=== PATIENT | female | born 1985 | race African-American/Black ===

== ENCOUNTER 2016-09-17 13:01 | Emergency (ER) | payer MEDICAID ==
[2016-09-17] MEDS ORDERED: PSEUDOEPHEDRINE HCL 30 MG TABLET PO ONE (14:06)
[2016-09-17] MEDS ORDERED: LORATADINE 10 MG TABLET PO ONE (14:06)
[2016-09-17] MEDS ORDERED: GUAIFENESIN 600 MG TABLET.SA PO ONE (14:06)
--- NOTE | 2016-09-17 14:12 | ER Document Report ---
ED Respiratory Problem - General Chief Complaint: Cough Stated Complaint: CONGESTION,SHORTNESS OF BREATH Time seen by provider: 14:00 Mode of Arrival: Ambulatory Information source: Patient Notes: 31-year-old female presents to ED for cough congestion shortness of breath with postnasal drip 3 days. She states she has a history of pneumonia ovarian cyst with the left ovary being removed tonsils and adenoids removed wisdom teeth surgically removed and a D&C. She states she is also allergic to penicillin. She smokes about 10 cigarettes a day and drinks on the weekends. She states she works at a [employer] and lives with her children. TRAVEL OUTSIDE OF THE [place] IN LAST 30 DAYS: No - HPI Patient complains to provider of: Cough, Short of breath Onset: Other - 3 days Duration: Intermittent episodes Initiating Event: URI Quality of pain: No pain Severity: None Pain Level: Denies Context: Smoker Cough: Nonproductive Sputum amount: None Associated symptoms: Congestion, Cough, PND, Sinus pain/pressure, Short of breath. denies: Fever Similar symptoms previously: Yes Recently seen / treated by doctor: No - Related Data Allergies/Adverse Reactions: Penicillins Allergy (Verified 09/17/16 13:22) Past Medical History - General Information source: Patient - Social History Smoking Status: Current Every Day Smoker Cigarette use (# per day): Yes - 10 cigarettes a day Chew tobacco use (# tins/day): No Smoking Education Provided: Yes - less than 1 minute Frequency of alcohol use: Social Drug Abuse: None Occupation: call center Lives with: Family - Her children Family History: DM, Hypertension, Other - CHF. denies: Arthritis, CAD, COPD, CVA, Hyperlipidemia, Malignancy, Thyroid Disfunction Patient has suicidal ideation: No Patient has homicidal ideation: No - Past Medical History Cardiac Medical History: Reports: None Pulmonary Medical History: Reports: Hx Pneumonia EENT Medical History: Reports: None Neurological Medical History: Reports: None Endocrine Medical History: Reports: None Renal/ Medical History: Reports: Hx Ovarian Cysts Malignancy Medical History: Reports: None GI Medical History: Reports: None Musculoskeltal Medical History: Reports None Skin Medical History: Reports None Psychiatric Medical History: Reports: None Traumatic Medical History: Reports: None Infectious Medical History: Reports: None Past Surgical History: Reports: Hx Adenoidectomy, Hx Gynecologic Surgery - left ovary removed due to cyst, Hx Oral Surgery - [place] teeth, Hx Tonsillectomy - Immunizations Hx Diphtheria, Pertussis, Tetanus Vaccination: Yes Review of Systems - Review of Systems Constitutional: Recent illness EENT: Nose discharge, Sinus discharge Cardiovascular: No symptoms reported Respiratory: Cough, Short of breath Gastrointestinal: No symptoms reported Genitourinary: No symptoms reported Female Genitourinary: No symptoms reported Musculoskeletal: No symptoms reported Skin: No symptoms reported Hematologic/Lymphatic: No symptoms reported Neurological/Psychological: No symptoms reported -: Yes All other systems reviewed and negative Physical Exam - Vital signs Vitals: Temp Pulse Resp BP Pulse Ox 98.3 F 84 16 107/52 L 98 09/17/16 13:23 09/17/16 13:23 09/17/16 13:23 09/17/16 13:23 09/17/16 13:23 Interpretation: Normal - General General appearance: Appears well, Alert - HEENT Head: Normocephalic, Atraumatic Eyes: Normal Pupils: PERRL Ears: Normal External canal: Normal Tympanic membrane: Normal Sinus: Normal Nasal: Purulent discharge, Swelling Mouth/Lips: Normal Mucous membranes: Normal Pharynx: Post nasal drainage, Other - 2 round areas that resemble tonsils on the back of the tongue. Neck: Normal - Respiratory Respiratory status: No respiratory distress Chest status: Nontender Breath sounds: Nonproductive cough Chest palpation: Normal - Cardiovascular Rhythm: Regular Heart sounds: Normal auscultation Murmur: No - Abdominal Inspection: Normal Distension: No distension Bowel sounds: Normal Tenderness: Nontender Organomegaly: No organomegaly - Back Back: Normal, Nontender - Extremities General upper extremity: Normal inspection, Nontender, Normal color, Normal ROM , Normal temperature General lower extremity: Normal inspection, Nontender, Normal color, Normal ROM , Normal temperature, Normal weight bearing. No: Shahid's sign - Neurological Neuro grossly intact: Yes Cognition: Normal Orientation: AAOx4 [place] Coma Scale Eye Opening: Spontaneous [place] Coma Scale Verbal: Oriented [place] Coma Scale Motor: Obeys Commands [place] Coma Scale Total: 15 Speech: Normal Motor strength normal: LUE, RUE, LLE, RLE Sensory: Normal - Psychological Associated symptoms: Normal affect, Normal mood - Skin Skin Temperature: Warm Skin Moisture: Dry Skin Color: Normal Course - Re-evaluation Re-evalutation: 09/17/16 15:[address] Euceda concerning the enlargement of the posterior tongue. He recommended I speak with ENT. I spoke with Dr. Haque who stated that unless the patient was having difficulty swallowing she could follow up with the ENT if she developed any problems at this would not be causing her shortness of breath. Patient was discharged home with a upper respiratory infection as the chest x-ray was negative and she has been afebrile throughout her illness. - Vital Signs Vital signs: Temp Pulse Resp BP Pulse Ox 97.6 F 65 16 112/60 98 09/17/16 15:16 09/17/16 15:16 09/17/16 15:16 09/17/16 15:16 09/17/16 15:16 - Diagnostic Test Radiology reviewed: Image reviewed, Reports reviewed Discharge - Discharge Clinical Impression: URI (upper respiratory infection) Qualifiers: URI type: unspecified URI Qualified Code(s): J06.9 - Acute upper respiratory infection, unspecified Condition: Stable Disposition: HOME, SELF-CARE Instructions: Family Physicians / Practices Additional Instructions: UPPER RESPIRATORY ILLNESS: You have a viral infection of the respiratory passages -- a "cold." This common infection causes nasal congestion, drainage, and often sore throat and cough. It is highly contagious. The disease usually lasts about 10 to 14 days. There is no "cure" for the viral infection -- it must run its course. If there is a complication, such as bacterial infection in the nose, sinuses, middle ear, or bronchial tubes, antibiotics may be required. The antibiotics won't affect the virus. Drink plenty of fluids. A humidifier may help. An expectorant medication or decongestant may make you more comfortable. Use acetaminophen or ibuprofen for fever or aches. See the doctor if fever persists over two days, if there is any significant worsening of your symptoms, or if you simply fail to improve as expected. DECONGESTANT MEDICATION: A decongestant medicine has been prescribed. Often this medicine is combined in the same tablet with an antihistamine or expectorant. This type of medicine is helpful in treating a bad cold or sinus condition, as well as in treatment of the nasal congestion of hay fever. It is not of much benefit for lung infections. Decongestant medicines are related to stimulants. They can cause an increase in blood pressure and heart rate. Persons with heart disease and high blood pressure should not take decongestants without discussing this with the physician. If you develop palpitations, chest pain, headache, or tremors, stop the medicine and consult your physician. COUGH-SUPPRESSANT & EXPECTORANT MEDICATION: You are to use a cough medication as needed for relief of symptoms. This medicine is a combination of an expectorant (to make the mucous thinner and more easily "coughed up") and a cough suppressant (to reduce the frequency of coughing). The cough-suppressant medicine is related to narcotics. You may experience mild nausea and sleepiness. Some patients who are very sensitive to narcotics may have stomach pain from this medicine. Taking the medicine with food reduces these side effects. Do not drive or work with machinery until you know how this medicine affects you. The expectorant should have no side effects. Iodine-containing expectorants (such as organidin) should not be taken by persons with active thyroid disease unless approved by your doctor. Call the doctor if you develop shortness of breath, hives, rash, itching, lightheadedness, or severe nausea and vomiting. USE OF ACETAMINOPHEN (Tylenol): Acetaminophen may be taken for pain relief or fever control. It's much safer than aspirin, offering a wider range of "safe" dosages. It is safe during . Some brand names are Tylenol, Panadol, Datril, Anacin 3, Tempra, and Liquiprin. Acetaminophen can be repeated every four hours. The following are maximum recommended dosages: >89 pounds or adults 650 mg to 900 mg Acetaminophen can be repeated every four hours. Maximum dose not to exceed 4000 mg a day. SMOKING: If you smoke, you should stop smoking. The tar and chemicals in cigarette smoke are harmful. Smoking has been shown to cause: emphysema chronic bronchitis lung cancer mouth and throat cancer stomach and pancreas cancer premature aging defects In addition, smoking increases ear and lung infections in children of smokers. FOLLOW-UP CARE: If you have been referred to a physician for follow-up care, call the physician s office for an appointment as you were instructed or within the next two days. If you experience worsening or a significant change in your symptoms, notify the physician immediately or return to the Emergency Department at any time for re-evaluation. Forms: Smoking Cessation Education, Return to Work
[2016-09-17 15:16] VITALS: BP 112/60
== END 2016-09-17 15:17 | disposition home or self-care (01) ==
LOC: ER 13:01
DX: J06.9 Acute upper respiratory infection, unspecified (principal); K14.8 Other diseases of tongue; R05 Cough; R06.02 Shortness of breath; R09.82 Postnasal drip; J34.89 Other specified disorders of nose and nasal sinuses; F17.210 Nicotine dependence, cigarettes, uncomplicated; Z71.6 Tobacco abuse counseling; Z87.01 Personal history of pneumonia (recurrent); Z88.0 Allergy status to penicillin
CPT/HCPCS: 71020; 99283

== ENCOUNTER 2016-09-20 11:42 | Emergency (ER) | payer SELFPAY ==
[2016-09-20] MEDS ORDERED: DEXAMETHASONE 4 MG TABLET PO ONE (12:41)
--- NOTE | 2016-09-20 12:41 | ER Document Report ---
ED General - General Chief Complaint: Congestion Stated Complaint: BODY PAIN,COUGH,CONGESTION Notes: Patient is a 31-year-old female without past medical history who presents with ongoing cough, nasal congestion, sore throat and generalized fatigue. States that her daughter was recently similar with the exact same symptoms and she believes she has caught the same illness from her. She was seen in the emergency department several days ago for the same complaint and states that her symptoms have not improved since that time. She has not had a recorded fever. She describes a dull, scratching pain to her throat that is constant and worsened by swallowing. She has been trying [id number] medications with minimal improvement of her symptoms. States that she has returned today because she continues to be unable to work at a [employer] center due to her ongoing symptoms. She has tolerated oral intake without difficulty. Denies any dyspnea , syncope, vomiting or diarrhea. States she's had similar illnesses in the past with viral upper respiratory infections. TRAVEL OUTSIDE OF THE [place] IN LAST 30 DAYS: No - Related Data Allergies/Adverse Reactions: Penicillins Allergy (Verified 09/20/16 12:37) Past Medical History - General Information source: Patient - Social History Smoking Status: Current Some Day Smoker Frequency of alcohol use: None Drug Abuse: None Lives with: Spouse/Significant other Family History: DM, Hypertension, Other - CHF. denies: Arthritis, CAD, COPD, CVA, Hyperlipidemia, Malignancy, Thyroid Disfunction Patient has suicidal ideation: No Patient has homicidal ideation: No Pulmonary Medical History: Reports: Hx Pneumonia Renal/ Medical History: Reports: Hx Ovarian Cysts. Denies: Hx Peritoneal Dialysis Past Surgical History: Reports: Hx Adenoidectomy, Hx Gynecologic Surgery - left ovary removed due to cyst, Hx Oral Surgery - [place] teeth, Hx Tonsillectomy - Immunizations Hx Diphtheria, Pertussis, Tetanus Vaccination: Yes Review of Systems - Review of Systems Notes: Constitutional: Negative for fever. HENT: Positive for sore throat. Eyes: Negative for visual changes. Cardiovascular: Negative for chest pain. Respiratory: Negative for shortness of breath. Positive cough Gastrointestinal: Negative for abdominal pain, vomiting or diarrhea. Genitourinary: Negative for dysuria. Musculoskeletal: Negative for back pain. Skin: Negative for rash. Neurological: Negative for headaches, weakness or numbness. 10 point ROS negative except as marked above and in HPI. Physical Exam - Vital signs Vitals: Temp Pulse Resp BP Pulse Ox 98.2 F 112 H 20 118/73 97 09/20/16 11:53 09/20/16 11:53 09/20/16 11:53 09/20/16 11:53 09/20/16 11:53 Interpretation: Tachycardic Notes: PHYSICAL EXAMINATION: GENERAL: Well-appearing, well-nourished and in no acute distress. HEAD: Atraumatic, normocephalic. EYES: Pupils equal round and reactive to light, extraocular movements intact, sclera anicteric, conjunctiva are normal. ENT: nares patent, oropharynx clear without exudates. Moist mucous membranes. NECK: Normal range of motion, bilateral anterior cervical lymphadenopathy that is tender to palpation LUNGS: Breath sounds clear to auscultation bilaterally and equal. No wheezes rales or rhonchi. HEART: Regular rate and rhythm without murmurs ABDOMEN: Soft, nontender, normoactive bowel sounds. No guarding, no rebound. No masses appreciated. EXTREMITIES: Normal range of motion, no pitting or edema. No cyanosis. NEUROLOGICAL: No focal neurological deficits. Moves all extremities spontaneously and on command. PSYCH: Normal mood, normal affect. SKIN: Warm, Dry, normal turgor, no rashes or lesions noted. Course - Re-evaluation Re-evalutation: 09/20/16 12:40 Presentation is most consistent with a viral upper respiratory infection. Patient is overall well appearance, vitals within normal limits at time of assessment although initially patient was tachycardic, well-hydrated. Patient denies any headache, neck pain, and has no evidence of meningismus on examination. Lungs are clear bilaterally. No evidence of respiratory distress. Based on clinical exam and history, I do not suspect an acute pneumonia, meningitis, strep pharyngitis, or an acute encephalitis. Chest x- ray was already obtained on her most recent visit was noted be normal. Will give a single dose of Decadron to assist with throat discomfort. No laboratory or imaging testing is indicated at this time. At this time will discharge with return precautions and follow-up recommendations. Verbal discharge instructions given a the bedside and opportunity for questions given. Medication warnings reviewed. Patient is in agreement with this plan and has verbalized understanding of return precautions and the need for primary care follow-up in the next 24-72 hours. - Vital Signs Vital signs: Temp Pulse Resp BP Pulse Ox 98.2 F 112 H 20 118/73 97 09/20/16 11:53 09/20/16 11:53 09/20/16 11:53 09/20/16 11:53 09/20/16 11:53 Discharge - Discharge Clinical Impression: URI (upper respiratory infection) Qualifiers: URI type: unspecified URI Qualified Code(s): J06.9 - Acute upper respiratory infection, unspecified Condition: Good Disposition: HOME, SELF-CARE Additional Instructions: Your symptoms are most likely due to a viral infection it should resolve over the next 7-14 days. You should take tldu-[id number] guanfacine per bottle instructions to help thin the mucus. For nasal congestion: I would recommend that you get [id number] oxymetazoline also known is afrin. Use only per bottle instructions and be sure to never use this for more than 3 days if you can develop severe rebound congestion. You may also use tylenol or ibuprofen as needed for aches and thorat discomfort. Please be sure to drink plenty of fluids and get rest. Return to the emergency department he began having difficulty breathing, chest pain, persistent vomiting, or any other symptoms that are concerning to you. Forms: Return to Work
[2016-09-20 12:54] VITALS: BP 122/61
== END 2016-09-20 12:50 | disposition home or self-care (01) ==
LOC: ER 11:42
DX: J06.9 Acute upper respiratory infection, unspecified (principal); M79.1 Myalgia; R00.0 Tachycardia, unspecified; R53.83 Other fatigue; F17.200 Nicotine dependence, unspecified, uncomplicated
CPT/HCPCS: 99283

== ENCOUNTER 2016-11-15 21:19 | Emergency (ER) | payer SELFPAY ==
[2016-11-15] MEDS ORDERED: ASPIRIN 81 MG TABLET, CHEWABLE PO ONE (21:51)
--- NOTE | 2016-11-15 22:20 | RADIOLOGY REPORT (SQ) ---
EXAM DESCRIPTION: CHEST PA/LAT COMPLETED DATE/TIME: 11/15/2016 10:12 pm REASON FOR STUDY: chest pain COMPARISON: 09/17/2016 EXAM PARAMETERS: NUMBER OF VIEWS: two views TECHNIQUE: Digital Frontal and Lateral radiographic views of the chest acquired. RADIATION DOSE: NA LIMITATIONS: none FINDINGS: LUNGS AND PLEURA: No opacities, masses or pneumothorax. No pleural effusion. MEDIASTINUM AND HILAR STRUCTURES: No masses or contour abnormalities. HEART AND VASCULAR STRUCTURES: Heart normal size. No evidence for failure. BONES: No acute findings. HARDWARE: None in the chest. OTHER: No other significant finding. IMPRESSION: NO SIGNIFICANT RADIOGRAPHIC FINDING IN THE CHEST. TECHNICAL DOCUMENTATION: JOB ID: [id number] [employer]- All Rights Reserved
[2016-11-15 23:03] LABS: ABSOLUTE EOSINOPHILS # (AUTO) 0.2 10^3/uL (0.0-0.6); ABSOLUTE LYMPHOCYTES (AUTO) 2.5 10^3/uL (0.5-4.7); ABSOLUTE MONOCYTES (AUTO) 0.8 10^3/uL (0.1-1.4); ABSOLUTE NEUT (AUTO) 3.4 10^3/uL (1.7-8.2); BASOPHILS % (AUTO) 0.6 % (0-2); EOSINOPHILS % (AUTO) 2.7 % (0-6); HEMATOCRIT 38.1 % (36.0-47.0); HGB HCT DIFFERENCE -2.1; LYMPHOCYTES % (AUTO) 35.7 % (13-45); MEAN CORPUSCULAR HEMOGLOBIN 26.6 pg (27.0-33.4); MEAN CORPUSCULAR HGB CONC 31.5 g/dL (32.0-36.0); MEAN CORPUSCULAR VOLUME 85 fl (80-97); MONOCYTES % (AUTO) 11.6 % (3-13); RED BLOOD COUNT 4.51 10^6/uL (3.72-5.28); RED CELL DISTRIBUTION WIDTH 15.5 % (11.5-14.0); SEGMENTED NEUTROPHILS % (AUTO) 49.4 % (42-78); WHITE BLOOD COUNT 6.9 10^3/uL (4.0-10.5)
[2016-11-15 23:19] LABS: ALANINE AMINOTRANSFERASE 23 U/L (9-52); ALBUMIN 3.8 g/dL (3.5-5.0); ALKALINE PHOSPHATASE 63 U/L (38-126); ANION GAP 8 (5-19); ASPARTATE AMINO TRANSFERASE 18 U/L (14-36); BILIRUBIN,DIRECT 0.2 mg/dL (0.0-0.4); BILIRUBIN,TOTAL 0.4 mg/dL (0.2-1.3); BLOOD UREA NITROGEN 8 mg/dL (7-20); CARBON DIOXIDE 25 mmol/L (22-30); CHLORIDE 108 mmol/L (98-107); CREATINE KINASE 73 U/L (30-135); CREATININE RESULT 0.71 mg/dL (0.52-1.25); GLUCOSE 87 mg/dL (75-110); POTASSIUM 4.1 mmol/L (3.6-5.0); SODIUM 140.9 mmol/L (137-145); TOTAL PROTEIN 7.3 g/dL (6.3-8.2)
[2016-11-15 23:30] LABS: CREATINE KINASE MB 0.26 ng/mL (<4.55)
[2016-11-15 23:31] LABS: TROPONIN I < 0.012 ng/mL
[2016-11-16] MEDS ORDERED: FAMOTIDINE 20 MG TABLET PO ONE (00:42)
--- NOTE | 2016-11-16 00:51 | ER Document Report ---
ED General - General Chief Complaint: Chest Pressure Stated Complaint: CHEST DISCOMFORT Time Seen by Provider: 11/16/16 00:25 Mode of Arrival: Ambulatory Information source: Patient TRAVEL OUTSIDE OF THE [place] IN LAST 30 DAYS: No - HPI Notes: Patient is a pleasant 31-year-old black female smoker presents with complaint of intermittent chest pain for 1 week nonexertional. The patient states she has associated belching and has improvement after belching. The patient reports no anti-inflammatory use. She denies any nausea vomiting or significant dyspnea. Medications none Social history patient smokes occasional alcohol use. Family history mother age 54 of cardiac disease and had a pacemaker, but patient states her mother had other significant medical issues. No other family history of heart disease. - Related Data Allergies/Adverse Reactions: Penicillins Allergy (Verified 09/20/16 12:37) Past Medical History - General Information source: Patient - Social History Smoking Status: Current Every Day Smoker Frequency of alcohol use: Occasional Drug Abuse: None Lives with: Family Family History: CAD, DM, Hypertension, Other - CHF. denies: Arthritis, COPD, CVA, Hyperlipidemia, Malignancy, Thyroid Disfunction Patient has suicidal ideation: No Patient has homicidal ideation: No Pulmonary Medical History: Reports: Hx Pneumonia Renal/ Medical History: Reports: Hx Ovarian Cysts. Denies: Hx Peritoneal Dialysis Past Surgical History: Reports: Hx Adenoidectomy, Hx Gynecologic Surgery - left ovary removed due to cyst, Hx Oral Surgery - [place] teeth, Hx Tonsillectomy - Immunizations Hx Diphtheria, Pertussis, Tetanus Vaccination: Yes Review of Systems - Review of Systems Notes: REVIEW OF SYSTEMS: CONSTITUTIONAL : Denies fever, chills, or sweats. Denies recent illness. EENT: Denies eye, ear, throat, or mouth pain or symptoms. Denies nasal or sinus congestion or discharge. Denies throat, tongue, or mouth swelling or difficulty swallowing. CARDIOVASCULAR: Denies palpitations or racing or irregular heart beat. Denies ankle edema. RESPIRATORY: Denies cough, cold, or chest congestion. Denies shortness of breath, difficulty breathing, or wheezing. GASTROINTESTINAL: Denies abdominal distention. Denies nausea, vomiting, or diarrhea. Denies blood in vomitus, stools, or per rectum. Denies black, tarry stools. Denies constipation. GENITOURINARY: Denies difficulty urinating, painful urination, burning, frequency, blood in urine, or discharge. FEMALE GENITOURINARY: Denies vaginal bleeding, heavy or abnormal periods, irregular periods. Denies vaginal discharge or odor. MUSCULOSKELETAL: Denies back or neck pain or stiffness. Denies joint pain or swelling. SKIN: Denies rash, lesions or sores. HEMATOLOGIC : Denies easy bruising or bleeding. LYMPHATIC: Denies swollen, enlarged glands. NEUROLOGICAL: Denies confusion or altered mental status. Denies passing out or loss of consciousness. Denies dizziness or lightheadedness. Denies headache. Denies weakness or paralysis or loss of use of either side. Denies problems with gait or speech. Denies sensory loss, numbness, or tingling. Denies seizures. PSYCHIATRIC: Denies depression, suicidal ideation, or homicidal ideation. Patient admits to some anxiety. ALL OTHER SYSTEMS REVIEWED AND NEGATIVE. Dictation was performed using [employer] voice recognition software Physical Exam - Vital signs Vitals: Temp Pulse Resp BP Pulse Ox 98.1 F 68 20 102/61 100 11/15/16 21:34 11/15/16 21:34 11/15/16 21:34 11/15/16 21:34 11/15/16 21:34 - Notes Notes: PHYSICAL EXAMINATION: GENERAL: Well-appearing, well-nourished and in no acute distress. HEAD: Atraumatic, normocephalic. EYES: Pupils equal round and reactive to light, extraocular movements intact, conjunctiva are normal. ENT: Nares patent, oropharynx clear without exudates. Moist mucous membranes. NECK: Normal range of motion, supple without lymphadenopathy LUNGS: Breath sounds clear to auscultation bilaterally and equal. No wheezes rales or rhonchi. HEART: Regular rate and rhythm without murmurs ABDOMEN: Soft, nondistended abdomen. No guarding, no rebound. No masses appreciated. Negative Anderson's. Mild midepigastric pain. Female : deferred Musculoskeletal: Normal range of motion, no pitting or edema. No cyanosis. NEUROLOGICAL: Cranial nerves grossly intact. Normal speech, normal gait. Normal sensory, motor exams PSYCH: Normal mood, normal affect. SKIN: Warm, Dry, normal turgor, no rashes or lesions noted. Course - Re-evaluation Re-evalutation: 11/16/16 01:12 Patient was given Pepcid by mouth and had no recurrence of discomfort. She was ambulatory without complaint. No evidence for pneumonia, congestive heart failure, anemia, GI bleed, electrolyte imbalance, acute OR or ischemia. Patient was counseled about quitting smoking. Given the nonexertional discomfort associated with vomiting, this fits more so with a gastritis as an etiology. - Vital Signs Vital signs: Temp Pulse Resp BP Pulse Ox 98.1 F 68 20 102/61 100 11/15/16 21:34 11/15/16 21:34 11/15/16 21:34 11/15/16 21:34 11/15/16 21:34 - Laboratory Result Diagrams: 11/15/16 22:49 11/15/16 22:49 Laboratory results interpreted by me: 11/15/16 11/15/16 22:49 22:49 MCH 26.6 L MCHC 31.5 L RDW 15.5 H Chloride 108 H - EKG Interpretation by Me EKG shows normal: Sinus rhythm Rate: Bradycardia Additional EKG results interpreted by me: 11/16/16 00:54 EKG as interpreted by me showed sinus rhythm rate 58 consistent with mild bradycardia. There is no gross evidence for acute OR or ischemia noted. There is no change from previous EKG from 10/28/12. Discharge - Discharge Clinical Impression: Chest pain Qualifiers: Chest pain type: unspecified Qualified Code(s): R07.9 - Chest pain, unspecified Gastritis Qualifiers: Gastritis type: unspecified gastritis Chronicity: acute Gastritis bleeding: without bleeding Qualified Code(s): K29.00 - Acute gastritis without bleeding Condition: Stable Disposition: HOME, SELF-CARE Instructions: Gastritis ([facility]), Chest Pain of Unclear Cause ([facility]), Family Physicians / Practices Prescriptions: Ranitidine HCl 150 mg PO BID #60 tablet Forms: Return to Work
[2016-11-16 01:19] VITALS: BP 141/72
--- NOTE | 2016-11-16 13:40 | EKG REPORT ---
SEVERITY:- ABNORMAL ECG - SINUS RHYTHM : Confirmed by: Sharron Dobson 16-Nov-2016 13:39:48
== END 2016-11-16 01:20 | disposition home or self-care (01) ==
LOC: ER 21:19
DX: R07.89 Other chest pain (principal); K29.00 Acute gastritis without bleeding; R10.13 Epigastric pain; F17.200 Nicotine dependence, unspecified, uncomplicated; Z71.6 Tobacco abuse counseling; Z82.49 Family history of ischemic heart disease and other diseases of the circulatory system; Z88.0 Allergy status to penicillin; Z87.01 Personal history of pneumonia (recurrent)
CPT/HCPCS: 36415; 71020; 80053; 82550; 82553; 84484; 84703; 85025; 93005; 93010; 99284

== ENCOUNTER 2017-01-15 11:43 | Emergency (ER) | payer SELFPAY ==
[2017-01-15] MEDS ORDERED: CEFTRIAXONE 2 GM/D5W RTU 2 GM/50 ML RTUPB IV ONE (12:07)
[2017-01-15 12:21] LABS: HEMATOCRIT 38.2 % (36.0-47.0); HEMOGLOBIN 12.5 g/dL (12.0-15.5); HGB HCT DIFFERENCE -0.7; MEAN CORPUSCULAR HEMOGLOBIN 27.2 pg (27.0-33.4); MEAN CORPUSCULAR HGB CONC 32.8 g/dL (32.0-36.0); MEAN CORPUSCULAR VOLUME 83 fl (80-97); RED BLOOD COUNT 4.61 10^6/uL (3.72-5.28); RED CELL DISTRIBUTION WIDTH 15.8 % (11.5-14.0); WHITE BLOOD COUNT 24.4 10^3/uL (4.0-10.5)
[2017-01-15 12:22] LABS: VENOUS BLOOD BASE EXCESS 1.5 mmol/L; VENOUS BLOOD HCO3 25.1 mmol/L (20-32); VENOUS BLOOD PCO2 36.2 mmHg (35-63); VENOUS BLOOD PH 7.46 (7.30-7.42)
[2017-01-15 12:27] LABS: PROTHROMBIN TIME 15.7 SEC (11.4-15.4)
[2017-01-15 12:42] LABS: ALANINE AMINOTRANSFERASE 15 U/L (9-52); ALBUMIN 3.8 g/dL (3.5-5.0); ALKALINE PHOSPHATASE 64 U/L (38-126); ANION GAP 14 (5-19); ASPARTATE AMINO TRANSFERASE 18 U/L (14-36); BILIRUBIN,DIRECT 0.4 mg/dL (0.0-0.4); BILIRUBIN,TOTAL 0.4 mg/dL (0.2-1.3); BLOOD UREA NITROGEN 8 mg/dL (7-20); CALCIUM 9.1 mg/dL (8.4-10.2); CARBON DIOXIDE 21 mmol/L (22-30); CHLORIDE 102 mmol/L (98-107); CREATININE RESULT 0.83 mg/dL (0.52-1.25); GLUCOSE 132 mg/dL (75-110); POTASSIUM 3.3 mmol/L (3.6-5.0); SODIUM 136.5 mmol/L (137-145); TOTAL PROTEIN 7.5 g/dL (6.3-8.2)
[2017-01-15 12:45] LABS: BAND NEUTROPHILS % (MANUAL) 1 % (3-5); BASOPHILS % (MANUAL) 0 % (0-2); EOSINOPHILS % (MANUAL) 0 % (0-6); LYMPHOCYTES % (MANUAL) 5 % (13-45); TOTAL CELLS COUNTED 100
--- NOTE | 2017-01-15 12:45 | RADIOLOGY REPORT (SQ) ---
EXAM DESCRIPTION: CHEST SINGLE VIEW/ portable COMPLETED DATE/TIME: 01/15/2017 12:28 pm REASON FOR STUDY: bed 18 sepsis protocol COMPARISON: None. NUMBER OF VIEWS: One view. TECHNIQUE: Single frontal radiographic view of the chest acquired. LIMITATIONS: None. FINDINGS: LUNGS AND PLEURA: No opacities, masses or pneumothorax. No pleural effusion. MEDIASTINUM AND HILAR STRUCTURES: No masses. Contour normal. HEART AND VASCULAR STRUCTURES: Heart normal in size. Normal vasculature. BONES: No acute findings. HARDWARE: None in the chest. OTHER: No other significant finding. IMPRESSION: NO SIGNIFICANT RADIOGRAPHIC FINDING IN THE CHEST. TECHNICAL DOCUMENTATION: JOB ID: [id number] [employer]- All Rights Reserved
[2017-01-15 12:48] LABS: RBC MORPHOLOGY COMMENT NORMO-CYTIC/CHROMIC
[2017-01-15 13:00] LABS: APPEARANCE,URINE SLIGHTLY-CLOUDY; BILIRUBIN,URINE NEGATIVE (NEGATIVE); GLUCOSE, URINE NEGATIVE (NEGATIVE); KETONES,URINE 20 mg/dL (NEGATIVE); LEUKOCYTE ESTERASE,URINE MODERATE (NEGATIVE); NITRITE,URINE NEGATIVE (NEGATIVE); PROTEIN,URINE 100 mg/dL (NEGATIVE); URINE SPECIFIC GRAVITY 1.026
--- NOTE | 2017-01-15 14:54 | ER Document Report ---
ED General - General Chief Complaint: Fever Stated Complaint: FEVER Time Seen by Provider: 01/15/17 12:06 Notes: Patient says she has been ill since yesterday afternoon. Complains of generalized body aches all over. Has a fever. Bilateral abdominal pain. Denies nausea or vomiting or diarrhea. Denies UTI symptoms. Has had a slight cough with some congestion. No blood present. Fever as mentioned. Just finished her menstrual cycle. On no control. Patient is healthy on no medications. No history of any surgeries except for TNA and left ovary removed 12 years ago. TRAVEL OUTSIDE OF THE [place] IN LAST 30 DAYS: No - Related Data Allergies/Adverse Reactions: Penicillins Allergy (Verified 09/20/16 12:37) Past Medical History - Social History Smoking Status: Current Every Day Smoker Chew tobacco use (# tins/day): No Frequency of alcohol use: None Drug Abuse: None Family History: CAD, DM, Hypertension, Other - CHF. denies: Arthritis, COPD, CVA, Hyperlipidemia, Malignancy, Thyroid Disfunction Pulmonary Medical History: Reports: Hx Pneumonia Renal/ Medical History: Reports: Hx Ovarian Cysts Past Surgical History: Reports: Hx Adenoidectomy, Hx Gynecologic Surgery - left ovary removed due to cyst, Hx Oral Surgery - [place] teeth, Hx Tonsillectomy - Immunizations Hx Diphtheria, Pertussis, Tetanus Vaccination: Yes Review of Systems - Review of Systems Notes: REVIEW OF SYSTEMS: CONSTITUTIONAL : Has had fever. See HPI. EENT: Denies eye, ear, nose or mouth or throat pain or other symptoms. CARDIOVASCULAR: Denies chest pain. RESPIRATORY: Has some cough and congestion. GASTROINTESTINAL: Has bilateral abdominal discomfort. Denies nausea, vomiting, or diarrhea. GENITOURINARY: Denies difficulty or painful urinating, urinary frequency, blood in urine. MUSCULOSKELETAL: Denies back or neck pain. Denies joint pain or swelling. SKIN: Denies rash or skin lesions. NEUROLOGICAL: Denies LOC or altered mental status. Denies headache. Denies sensory loss or motor deficits. ALL OTHER SYSTEMS REVIEWED AND NEGATIVE. Physical Exam - Vital signs Vitals: Resp Pulse Ox 21 H 100 01/15/17 11:59 01/15/17 11:59 Interpretation: Febrile - Notes Notes: PHYSICAL EXAMINATION: GENERAL: Well-appearing, in no acute distress. Afebrile. HEAD: Atraumatic, normocephalic. ENT: oropharynx clear without exudates. Moist mucous membranes. NECK: Normal range of motion, supple. LUNGS: Breath sounds clear and equal bilaterally. HEART: Regular rate and rhythm without murmurs. ABDOMEN: Soft, nontender. No guarding or rebound. BACK: No tenderness throughout entire back. EXTREMITIES: Normal range of motion without pain. NEUROLOGICAL: Normal speech, normal gait. Normal sensory, motor, and reflex exams. Awake, alert, and oriented x3. Cranial nerves normal. SKIN: Warm, dry, no rashes. Course - Re-evaluation Re-evalutation: 01/15/17 20:51 Review of patient's results suggest she has a urinary tract infection and likely pyelonephritis. She received 2 g of Rocephin IV and 2 L of saline IV and felt much better. She was able to take fluids and food without difficulty. Discussed her care with the hospitalist who said that she did not feel patient met criteria for inpatient care. Patient is a healthy young individual who very likely will do fine with outpatient care given that we have hydrated her and given her a large dose of broad-spectrum antibiotic IV. - Vital Signs Vital signs: Temp Pulse Resp BP Pulse Ox 100.2 F 11 L 102/62 100 01/15/17 12:01 01/15/17 15:02 01/15/17 15:02 01/15/17 15:02 - Laboratory Result Diagrams: 01/15/17 11:55 01/15/17 11:55 Laboratory results interpreted by me: 01/15/17 01/15/17 01/15/17 11:55 11:55 11:55 WBC 24.4 H RDW 15.8 H Seg Neuts % (Manual) 86 H Band Neutrophils % 1 L Lymphocytes % (Manual) 5 L Abs Neuts (Manual) 21.2 H Abs Monocytes (Manual) 2.0 H PT 15.7 H VBG pH Sodium 136.5 L Potassium 3.3 L Carbon Dioxide 21 L Glucose 132 H Urine Protein Urine Ketones Urine Urobilinogen Ur Leukocyte Esterase 01/15/17 01/15/17 11:55 12:25 WBC RDW Seg Neuts % (Manual) Band Neutrophils % Lymphocytes % (Manual) Abs Neuts (Manual) Abs Monocytes (Manual) PT VBG pH 7.46 H Sodium Potassium Carbon Dioxide Glucose Urine Protein 100 H Urine Ketones 20 H Urine Urobilinogen 2.0 H Ur Leukocyte Esterase MODERATE H Discharge - Discharge Clinical Impression: Pyelonephritis, Fever Condition: Stable Disposition: HOME, SELF-CARE Additional Instructions: PYELONEPHRITIS: Your evaluation shows evidence of pyelonephritis. This is an infection in the kidney. Typical symptoms are fever, pain in the flank, pain on urination, and frequent urination. Many cases of pyelonephritis can be treated at home. Hospital care may be necessary for patients who are very ill, or elderly or . Pyelonephritis is treated with antibiotics. Be sure to take all the medication as prescribed. Drink plenty of liquids (about three quarts per day) . You may take acetaminophen for fever. You should feel significantly improved within two days. You should have a recheck of your urine in about one week to insure that the infection is gone. Return for a re-examination if your symptoms worsen in any way -- such as high fever, shaking chills, severe weakness or dizziness, severe pain, or inability to pass your urine. ANTINAUSEA MEDICATION: You have been given a medication to suppress nausea and vomiting. This type of medication can be given as a shot, pill, or suppository. It will usually last for many hours. Pills and shots usually last six to eight hours, suppositories last about 12 hours. For the typical illness, only one or two doses of the medication may be necessary. Mild lightheadedness may occur. This type of medicine can cause drowsiness. Do not drive or operate dangerous machinery while under its influence. Do not mix with alcohol. See your doctor at once if you have muscle spasms or tightness, or uncontrollable motions (particularly of the neck, mouth, or jaw). Persistent vomiting or severe lightheadedness should also be evaluated by the physician. ANTIBIOTIC THERAPY: You have been given an antibiotic prescription. It's important that you take all the medication, unless instructed otherwise by your physician. Failure to complete the entire course can result in relapse of your condition. Common side effects of antibiotics include nausea, intestinal cramping, or diarrhea. Women may develop vaginal yeast infections, and babies can get yeast (thrush) in the mouth following the use of antibiotics. Contact your physician if you develop significant side effects from this medication. Allergy to this antibiotic can result in hives, wheezing, faintness, or itching. If symptoms of allergy occur, stop the medication and call the doctor. ROCEPHIN: You have been given an injection of an antibiotic called Rocephin ( ceftriaxone). Sometimes the injection must be combined with antibiotic pills. For some infections, such as an uncomplicated ear infection, Rocephin provides all the antibiotic that's needed. The antibiotic will be in your body for about two days. For serious infections, we usually repeat doses of Rocephin daily. Side effects are very unusual following a shot. Women may develop vaginal yeast infections, and babies can get yeast (thrush) in the mouth following the use of antibiotics. Contact your physician if you have symptoms with this medication. Allergy to this antibiotic can result in hives, wheezing, faintness, or itching. If symptoms of allergy occur, call the doctor at once. CEPHALEXIN: The antibiotic you've been prescribed is a member of the cephalosporin class. This type of antibiotic covers a wide variety of infections, including those of the skin, lungs, and urinary tract. It's useful for staph infections. This antibiotic is slightly similar to the penicillin family. In rare cases , a person who is allergic to penicillin will also be allergic to this medication. If you have had a severe allergic reaction to penicillin, and have not taken this antibiotic since that time, notify your doctor. Antibiotics which cover many germs ("broad spectrum" antibiotics) are more likely to cause diarrhea or "yeast" infections. Women prone to vaginal yeast problems may suffer an attack after taking this antibiotic. In infants, oral thrush (white spots "stuck" on the cheek) or yeast diaper rash may result. See your doctor if these problems occur. Call at once if you develop itching, hives , shortness of breath, or lightheadedness. USE OF ACETAMINOPHEN (Tylenol): Acetaminophen may be taken for pain relief or fever control. It's much safer than aspirin, offering a wider range of "safe" dosages. It is safe during . Some brand names are Tylenol, Panadol, Datril, Anacin 3, Tempra, and Liquiprin. Acetaminophen can be repeated every four hours. The following are maximum recommended dosages: >89 pounds or adults 650 mg to 900 mg Acetaminophen can be repeated every four hours. Maximum dose not to exceed 4000 mg a day. FOLLOW-UP CARE: If you have been referred to a physician for follow-up care, call the physician s office for an appointment as you were instructed or within the next two days. If you experience worsening or a significant change in your symptoms, notify the physician immediately or return to the Emergency Department at any time for re-evaluation. Prescriptions: Cephalexin Monohydrate [Keflex 500 mg Capsule] 500 mg PO TID 7 Days #21 capsule Promethazine HCl [Phenergan 25 mg Tablet] 1 - 2 tab PO Q6H PRN #15 tablet PRN Reason: Forms: Return to Work
[2017-01-15 15:13] VITALS: BP 102/62
--- NOTE | 2017-01-15 23:49 | EKG REPORT ---
SEVERITY:- NORMAL ECG - SINUS RHYTHM : Confirmed by: Sharron Dobson 15-Jan-2017 23:48:49
== END 2017-01-15 15:13 | disposition home or self-care (01) ==
LOC: ER 11:43
DX: N12 Tubulo-interstitial nephritis, not specified as acute or chronic (principal); R50.9 Fever, unspecified; F17.200 Nicotine dependence, unspecified, uncomplicated; M79.1 Myalgia
CPT/HCPCS: 93005; 99284; 96365; 36415; 87040; 87086; 84703; 85025; 85610; 80053; 81001; 82803; 83605; 71010; 93010; J0696

== ENCOUNTER 2017-04-22 14:18 | Emergency (ER) | payer MEDICAID ==
[2017-04-22] MEDS ORDERED: ACETAMINOPHEN 325 MG TABLET PO ONE (14:58)
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
[2017-04-22 16:27] LABS: APPEARANCE,URINE CLEAR; BILIRUBIN,URINE NEGATIVE (NEGATIVE); GLUCOSE, URINE NEGATIVE (NEGATIVE); KETONES,URINE 80 mg/dL (NEGATIVE); LEUKOCYTE ESTERASE,URINE NEGATIVE (NEGATIVE); NITRITE,URINE NEGATIVE (NEGATIVE); PROTEIN,URINE NEGATIVE (NEGATIVE); URINE SPECIFIC GRAVITY 1.019; UROBILINOGEN,URINE NEGATIVE mg/dL (<2.0)
[2017-04-22 16:34] VITALS: BP 100/70
== END 2017-04-22 16:33 | disposition home or self-care (01) ==
LOC: ER 14:18
DX: O9A.211 Injury, poisoning and certain other consequences of external causes complicating pregnancy, first trimester (principal); S00.81XA Abrasion of other part of head, initial encounter; Y04.2XXA Assault by strike against or bumped into by another person, initial encounter; Y92.009 Unspecified place in unspecified non-institutional (private) residence as the place of occurrence of the external cause; O26.891 Other specified pregnancy related conditions, first trimester; R51 Headache; R11.0 Nausea; M79.1 Myalgia; O99.331 Smoking (tobacco) complicating pregnancy, first trimester; Z3A.11 11 weeks gestation of pregnancy
CPT/HCPCS: 99284; 81001; 70486; J3490

== ENCOUNTER 2017-10-07 14:39 | Outpatient (CLI) | payer MEDICAID ==
[~2017-10-07 14:39] MED LIST: FERRIC CARBOXYMALTOSE 750 MG in NORMAL SALINE 250 ML IV PRN; NORMAL SALINE 250 ML IV PRN
[2017-10-07 15:44] VITALS: BP 126/74
== END 2017-10-07 16:10 | disposition home or self-care (01) ==
LOC: II 14:39 → 5TH 15:30 → II 16:10
PROVIDERS: ATTEND Internal Medicine
PROC: 3E033GC Introduction of Other Therapeutic Substance into Peripheral Vein, Percutaneous Approach (ICD-10-PCS; principal; 2017-10-07)
DX: D50.8 Other iron deficiency anemias (principal); K90.9 Intestinal malabsorption, unspecified
CPT/HCPCS: 96365; 96367; J1439; J7050

== ENCOUNTER 2018-05-18 08:29 | Emergency (ER) | payer MEDICAID ==
--- NOTE | 2018-05-18 09:22 | ER Document Report ---
ED Flu Like - General Chief Complaint: Flu Symptoms Stated Complaint: BODY ACHES Time Seen by Provider: 05/18/18 09:09 Mode of Arrival: Ambulatory Information source: Patient Notes: Patient is a 32-year-old female comes emergency room complaining of body aches and pains from head to toe. Chills with fever up to 101.1. Productive cough green thick. Sinus congestion with runny nose. Patient states symptoms started approximately 2 days ago she is tried taking [id number] NyQuil without much relief. She denies any other medical problems states that she smokes half pack of cigarettes a day. 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 TRAVEL OUTSIDE OF THE [place] IN LAST 30 DAYS: No - HPI Onset: Other - 2 days Timing/Duration: Constant, Worse Quality of pain: Achy Severity: Moderate Pain Level: 3 CO exposure: No Shortness of breath: Mild Associated symptoms: Body/muscle aches, Chills, Productive cough, Earache, Fever, Hurts to breath, Nausea, Rhinnorhea, Sinus pain/drainage, Sore throat, Weakness Recently seen / treated by doctor: No - Related Data Allergies/Adverse Reactions: Penicillins Allergy (Verified 05/18/18 08:31) Past Medical History - General Information source: Patient - Social History Smoking Status: Current Every Day Smoker Cigarette use (# per day): Yes - Half-pack cigarettes a day Chew tobacco use (# tins/day): No Smoking Education Provided: No Frequency of alcohol use: Rare Drug Abuse: None Lives with: Spouse/Significant other Family History: Reviewed & Not Pertinent, CAD, DM, Hypertension, Other - CHF. denies: Arthritis, COPD, CVA, Hyperlipidemia, Malignancy, Thyroid Disfunction Pulmonary Medical History: Reports: Hx Pneumonia Renal/ Medical History: Reports: Hx Ovarian Cysts. Denies: Hx Peritoneal Dialysis Past Surgical History: Reports: Hx Adenoidectomy, Hx Gynecologic Surgery - left ovary removed due to cyst, Hx Oral Surgery - [place] teeth, Hx Tonsillectomy - Immunizations Hx Diphtheria, Pertussis, Tetanus Vaccination: Yes Review of Systems - Review of Systems Constitutional: See HPI, Fever, Malaise EENT: See HPI, Ear pain, Nose congestion, Sinus pressure, Throat pain Cardiovascular: No symptoms reported Respiratory: See HPI, Cough, Hurts to breathe, Short of breath, Wheezing Gastrointestinal: No symptoms reported Genitourinary: No symptoms reported Female Genitourinary: No symptoms reported Musculoskeletal: No symptoms reported Skin: No symptoms reported Hematologic/Lymphatic: No symptoms reported Neurological/Psychological: No symptoms reported -: Yes All other systems reviewed and negative Physical Exam - Vital signs Vitals: Temp Pulse Resp BP Pulse Ox 97.8 F 85 20 126/71 H 94 05/18/18 08:36 05/18/18 08:36 05/18/18 08:36 05/18/18 08:36 05/18/18 08:36 Interpretation: Normal - Notes Notes: PHYSICAL EXAMINATION: GENERAL: Patient is a well-nourished well-developed overweight 32-year-old female who is in no apparent distress on physical examination today however she does appear to be somewhat ill in appearance. O2 saturation was 94% on room air. HEAD: Atraumatic, normocephalic. EYES: Pupils equal round and reactive to light, extraocular movements intact, conjunctiva are normal. ENT: Examination head and upper airway showed nasal mucosa to be erythematous and edematous with rhinorrhea yellowish in color noted. Also noted is bilateral nasal congestion with right being worse than left. There is some frontal sinus tenderness to palpation bilaterally. Maxillary sinuses do not appear to be affected. Examination of the ears show external canals to be clear of cerumen therefore no obstruction of the TMs is present. TMs are bulging slightly with no fluid levels noted. Further examination of the oral cavity shows the posterior pharynx to have moderate amount of erythema throughout the tonsils are slightly enlarged without any exudate. There is moderate amount of drainage in the posterior pharynx where it appears to be more irritation where it is coming down from the top. Fairly thick in appearance. Uvula is midline with erythema noticeable. There is no exudate on the uvula. Airway is patent. NECK: Normal range of motion, supple with bilateral anterior cervical l ymphadenopathy noted on palpation. LUNGS: Auscultation patient's lungs cueva show she has bilateral breath sounds with breath sounds increased throughout with end expiratory wheeze noted. There is no rhonchi or rales heard. HEART: Regular rate and rhythm without murmurs Female : deferred Musculoskeletal: Normal range of motion, no pitting or edema. No cyanosis. NEUROLOGICAL: Normal speech, normal gait. Normal sensory, motor exams PSYCH: Normal mood, normal affect. SKIN: Warm, Dry, normal turgor, no rashes or lesions noted. Course - Re-evaluation Re-evalutation: 05/18/18 10:16 Patient's chest x-ray and influenza were both negative. She does smoke some presuming she probably got a little asthmatic bronchitis versus a viral upper respiratory presentation. At any rate she does not need an antibiotic currently. I am going to put her on a little steroid taper for the inspiratory or expiratory wheeze that she has and her low sat I cannot explain except for maybe her body habitus. But she does not look critically ill. She looks uncomfortable. She is congested and miserable. I am going to put her on a low steroid taper as stated as well as some Sudafed for drying up the area. - Vital Signs Vital signs: Temp Pulse Resp BP Pulse Ox 97.8 F 85 20 126/71 H 94 05/18/18 08:36 05/18/18 08:36 05/18/18 08:36 05/18/18 08:36 05/18/18 08:36 Discharge - Discharge Clinical Impression: Bronchitis, Viral upper respiratory tract infection Condition: Stable Disposition: HOME, SELF-CARE Instructions: Acetaminophen, Fever ([facility]), Upper Respiratory Illness ([facility]), Viral Syndrome ([facility]), Bronchitis With Bronchospasm (Wheezing) ([facility]) Additional Instructions: BRONCHITIS: You have acute bronchitis. This disease is an infection or inflammation of the air passageways in your lungs. Symptoms usually include cough, low grade fever, shortness of breath, and wheezing. The cough usually persists for a couple of weeks. Most cases of bronchitis get better without antibiotics. We prescribe antibiotics when we believe bacteria are damaging your airways, or if there's high risk the bronchitis will worsen into pneumonia. Increase your fluid intake. A cool mist humidifier may make your lungs more comfortable. An expectorant (cough medicine that loosens phlegm) can help. If you smoke, STOP!!! Recovery from bronchitis can be somewhat slow, but you should see improvement within a day or two. Repeated episodes of bronchitis may result in lung damage -- for example, chronic bronchitis, recurrent pneumonias, or emphysema. Call the doctor if you develop increasing fever, shortness of breath, chest pain, bloody sputum, or otherwise worsen. If you have not improved at all after several days, contact the physician. BRONCHITIS WITH BRONCHOSPASM (WHEEZING): You have bronchitis with bronchospasm (wheezing). Sometimes people develop wheezing with a chest cold. This occurs either because of an underlying tendency toward asthma or because the virus itself irritates the bronchial tubes. This irritation causes cough, shortness of breath, and wheezing. Emergency treatment of bronchospasm may include adrenaline shots or bronchodilator aerosol. You may feel lightheaded and have a rapid pulse for an hour or two. Rest and get plenty of fluids. At home, we'll treat you with a bronchodilator inhaler. Corticosteroids may be required for some patients. Until you recover, avoid chemical fumes, dusts, pollens, and exercising in very cold or dry air. If you smoke, stop now! Most cases of bronchitis get better without antibiotics. We prescribe antibiotics when we believe bacteria are damaging your airways, or if there's high risk the bronchitis will worsen into pneumonia. Increase your fluid intake. A cool mist humidifier may make your lungs more comfortable. An expectorant (cough medicine that loosens phlegm) can help. Repeated episodes of bronchitis and bronchospasm may result in lung damage -- for example, chronic bronchitis, recurrent pneumonias, or emphysema. If you develop a fever, increased wheezing, chest pain, or severe shortness of breath, you should contact the doctor immediately. DECONGESTANT MEDICATION: A decongestant medicine has been prescribed. Often this medicine is combined in the same tablet with an antihistamine or expectorant. This type of medicine is helpful in treating a bad cold or sinus condition, as well as in treatment of the nasal congestion of hay fever. It is not of much benefit for lung infections. Decongestant medicines are related to stimulants. They can cause an increase in blood pressure and heart rate. Persons with heart disease and high blood pressure should not take decongestants without discussing this with the physician. If you develop palpitations, chest pain, headache, or tremors, stop the medicine and consult your physician. COUGH-SUPPRESSANT & EXPECTORANT MEDICATION: You are to use a cough medication as needed for relief of symptoms. This medicine is a combination of an expectorant (to make the mucous thinner and more easily "coughed up") and a cough suppressant (to reduce the frequency of coughing). The cough-suppressant medicine is related to narcotics. You may experience mild nausea and sleepiness. Some patients who are very sensitive to narcotics may have stomach pain from this medicine. Taking the medicine with food reduces these side effects. Do not drive or work with machinery until you know how this medicine affects you. The expectorant should have no side effects. Iodine-containing expectorants (such as organidin) should not be taken by persons with active thyroid disease unless approved by your doctor. Call the doctor if you develop shortness of breath, hives, rash, itching, lightheadedness, or severe nausea and vomiting. INHALED BRONCHODILATORS: You have received a treatment of and/or prescription for an inhaled bronchodilator -- a medication which stimulates the airways in the lung to dilate. This improves the flow of air in asthma, bronchitis, and emphysema. These medicines have some similarity to adrenaline, and can cause similar side effects: shakiness, racing heart, and a sense of nervousness. These side effects decrease with time. Contact your doctor if these side effects are severe. Do not over-use the medicine. Too-frequent use of the inhaler may make it ineffective. Call your doctor if the inhaler is not controlling your symptoms at the prescribed doses. STEROID MEDICATION: You have been given an injection of or oral medicine of the cortisone/steroid class. This medication is used to control inflammation or allergy. Rafael t is usually only given for a short period of time, until the acute process subsides. There are usually no side effects from short-term use of cortisone-like medications. Some persons feel an increased sense of well-being and are not sleepy at bedtime. Long-term use of cortisone medications is best avoided, unless required for a severe condition. If your condition does not remit, or relapses after the course of corticosteroid medication, you should consult your physician. USE OF ACETAMINOPHEN (Tylenol): Acetaminophen may be taken for pain relief or fever control. It's much safer than aspirin, offering a wider range of "safe" dosages. It is safe during . Some brand names are Tylenol, Panadol, Datril, Anacin 3, Tempra, and Liquiprin. Acetaminophen can be repeated every four hours. The following are maximum recommended dosages: >89 pounds or adults 650 mg to 900 mg Acetaminophen can be repeated every four hours. Maximum dose not to exceed 4000 mg a day. SMOKING: If you smoke, you should stop smoking. The tar and chemicals in cigarette smoke are harmful. Smoking has been shown to cause: emphysema chronic bronchitis lung cancer mouth and throat cancer stomach and pancreas cancer premature aging defects In addition, smoking increases ear and lung infections in children of smokers. FOLLOW-UP CARE: If you have been referred to a physician for follow-up care, call the physicians office for an appointment as you were instructed or within the next two days. If you experience worsening or a significant change in your symptoms, notify the physician immediately or return to the Emergency Department at any time for re-evaluation. As a informed you this is probably a viral upper respiratory infection versus bronchitis since you do smoke. The guidelines now it is do not have us put in bronchitis on antibiotics to start. I am writing for a steroid to help with the breathing portion of it as well as a antihistamine decongestant to dry well. Highly suggest that use of nasal saline 3-4 times a day to keep the nose moist and the secretions thin. I am also writing you for an inhaler I am not sure as to the cost of them but if you begin again the wheezing or get worse wheezing I highly suggest that you use it. If you do not have insurance coverage/ prescription coverage given you a prescription card that you can use any of the pharmacies that should give you a substantial break on the phillips. If you should get worse over the next few days return to ER for a recheck. 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 Prescriptions: Albuterol Sulfate [Proair Hfa Inhalation Aerosol 8.5 gm Mdi] 1 puff IH Q4 PRN #1 mdi PRN Reason: Prednisone 10 mg PO ASDIR PRN 6 Days #1 tab.ds.pk PRN Reason: Pseudoephedrine HCl [Sudafed 12 Hour] 120 mg PO BID #20 tablet.er Forms: Special Work Note Referrals: MARIBEL STRINGER MD [Primary Care Provider] - Follow up as needed
--- NOTE | 2018-05-18 09:42 | RADIOLOGY REPORT (SQ) ---
EXAM DESCRIPTION: CHEST 2 VIEWS COMPLETED DATE/TIME: 05/18/2018 9:29 am REASON FOR STUDY: fever low sat COMPARISON: None. EXAM PARAMETERS: NUMBER OF VIEWS: two views TECHNIQUE: Digital Frontal and Lateral radiographic views of the chest acquired. RADIATION DOSE: NA LIMITATIONS: none FINDINGS: LUNGS AND PLEURA: No opacities, masses or pneumothorax. No pleural effusion. MEDIASTINUM AND HILAR STRUCTURES: No masses or contour abnormalities. HEART AND VASCULAR STRUCTURES: Heart normal size. No evidence for failure. BONES: No acute findings. HARDWARE: None in the chest. OTHER: No other significant finding. IMPRESSION: No acute abnormality of the lungs. No focal airspace opacity. TECHNICAL DOCUMENTATION: JOB ID: [id number] [employer]- All Rights Reserved Reading location - IP/workstation name: [email or web address]
[2018-05-18 10:09] LABS: A TYPE INFLUENZA AG NEGATIVE (NEGATIVE); B INFLUENZA AG NEGATIVE (NEGATIVE)
[2018-05-18 10:34] VITALS: BP 126/73
== END 2018-05-18 10:33 | disposition home or self-care (01) ==
LOC: ER 08:29
DX: J40 Bronchitis, not specified as acute or chronic (principal); J06.9 Acute upper respiratory infection, unspecified; B97.89 Other viral agents as the cause of diseases classified elsewhere; M79.10 Myalgia, unspecified site; R05 Cough; R09.81 Nasal congestion; R09.89 Other specified symptoms and signs involving the circulatory and respiratory systems; F17.210 Nicotine dependence, cigarettes, uncomplicated; H92.09 Otalgia, unspecified ear; R07.1 Chest pain on breathing; R11.0 Nausea; J34.89 Other specified disorders of nose and nasal sinuses; J02.9 Acute pharyngitis, unspecified; R53.1 Weakness; Z88.0 Allergy status to penicillin; R06.02 Shortness of breath; R53.81 Other malaise; R06.2 Wheezing; J35.1 Hypertrophy of tonsils
CPT/HCPCS: 71046; 87804; 99283

== ENCOUNTER 2018-06-15 09:22 | Emergency (ER) | payer MEDICAID ==
[2018-06-15 09:29] VITALS: BP 130/69
[2018-06-15] MEDS ORDERED: CLINDAMYCIN 600 MG/D5W RTU 600 MG/50 ML RTUPB IV ONE (09:56)
[2018-06-15] MEDS ORDERED: ACETAMINOPHEN 325 MG TABLET PO ONE (10:00)
[2018-06-15] MEDS ORDERED: LIDOCAINE 2% VISCOUS SOLN 20 ML UDCUP PO ONE (10:00)
--- NOTE | 2018-06-15 10:03 | ER Document Report ---
HPI - HPI Patient complains to provider of: Dental infection Time Seen by Provider: 06/15/18 09:50 Onset: Yesterday Onset/Duration: Gradual Quality of pain: Achy Pain Level: 5 Context: Patient complains of dental infection with right-sided facial swelling from a broken tooth. Patient denies any fever. Associated Symptoms: Other - Dental infection Exacerbated by: Denies Relieved by: Denies Similar symptoms previously: No Recently seen / treated by doctor: No - ROS ROS below otherwise negative: Yes Systems Reviewed and Negative: Yes All other systems reviewed and negative - GASTROINTESTINAL Gastrointestinal: DENIES: Nausea - REPRODUCTIVE LMP: 04/29/18 Reproductive: REPORTS: :. DENIES: Abnormal bleeding / discharge - DERM Skin Color: Normal Skin Problems: None Past Medical History - General Information source: Patient - Social History Smoking Status: Current Every Day Smoker Smoking Education Provided: Yes Frequency of alcohol use: None Drug Abuse: None Occupation: customer service Lives with: Family Family History: Reviewed & Not Pertinent, CAD, DM, Hypertension, Other - CHF. denies: Arthritis, COPD, CVA, Hyperlipidemia, Malignancy, Thyroid Disfunction Patient has suicidal ideation: No Patient has homicidal ideation: No - Medical History Medical History: Negative Pulmonary Medical History: Reports: Hx Pneumonia Renal/ Medical History: Reports: Hx Ovarian Cysts. Denies: Hx Peritoneal D ialysis Past Surgical History: Reports: Hx Adenoidectomy, Hx Gynecologic Surgery - left ovary removed due to cyst, Hx Oral Surgery - [place] teeth, Hx Tonsillectomy - Immunizations Hx Diphtheria, Pertussis, Tetanus Vaccination: Yes Vertical Provider Document - CONSTITUTIONAL Agree With Documented VS: Yes Exam Limitations: No Limitations General Appearance: WD/WN, No Apparent Distress - INFECTION CONTROL TRAVEL OUTSIDE OF THE [place] IN LAST 30 DAYS: No - HEENT HEENT: Atraumatic, Normocephalic Mouth Diagram: 1 - Dental fracture, decay, tenderness Notes: Patient with marked right maxillary facial tenderness and swelling, no palpable area of fluctuance to drain on oral examination - NECK Neck: Normal Inspection, Supple. negative: Lymphadenopathy-Left, Lymp hadenopathy-Right - RESPIRATORY Respiratory: Breath Sounds Normal, No Respiratory Distress - CARDIOVASCULAR Cardiovascular: Regular Rate, Regular Rhythm, No Murmur - BACK Back: Normal Inspection - MUSCULOSKELETAL/EXTREMETIES Musculoskeletal/Extremeties: MAEW - NEURO Level of Consciousness: Awake, Alert, Appropriate Motor/Sensory: No Motor Deficit - DERM Integumentary: Warm, Dry, No Rash Course - Re-evaluation Re-evalutation: 06/15/18 10:01 Patient with significant right facial swelling, no drainable area of fluctuance on oral examination. Discussed worsening symptoms that patient should return immediately for. Patient verbalized understanding. Patient encouraged to follow-up with a dental care provider for further management. - Vital Signs Vital signs: Temp Pulse Resp BP Pulse Ox 98.9 F 81 22 H 130/69 H 98 06/15/18 09:28 06/15/18 09:28 06/15/18 09:28 06/15/18 09:28 06/15/18 09:28 Discharge - Discharge Clinical Impression: Infected dental caries Condition: Stable Disposition: HOME, SELF-CARE Instructions: Acetaminophen, Clindamycin ([facility]), Dentist, Dental Infection or Abscess ([facility]), Toothache ([facility]) Additional Instructions: Return immediately for any new or worsening symptoms Followup with your dental care provider, call today to make a followup appointment Prescriptions: Clindamycin HCl [Cleocin Hcl] 300 mg PO QID #28 capsule Forms: Smoking Cessation Education, Return to Work Referrals: MARIBEL STRINGER MD [ACTIVE STAFF] - Follow up as needed [facility] [Provider Group] - Follow up as needed
== END 2018-06-15 10:48 | disposition home or self-care (01) ==
LOC: ER 09:22
DX: O99.611 Diseases of the digestive system complicating pregnancy, first trimester (principal); K04.7 Periapical abscess without sinus; K02.9 Dental caries, unspecified; K08.89 Other specified disorders of teeth and supporting structures; O99.331 Smoking (tobacco) complicating pregnancy, first trimester; Z3A.01 Less than 8 weeks gestation of pregnancy
CPT/HCPCS: 99283; 96365; J3490 ×2; S0077

== ENCOUNTER 2018-06-16 03:20 | Emergency (ER) | payer MEDICAID ==
[2018-06-16] MEDS ORDERED: MORPHINE SULFATE 10 MG/ML INJ IM ONE (05:28)
[2018-06-16] MEDS ORDERED: ONDANSETRON 4 MG TAB.RAPDIS PO ONE (05:28)
[2018-06-16] MEDS ORDERED: HYDROCODONE/ACETAMINOPHEN 5-325 MG (6 TAB/ER DISP) PO PRN (05:32)
--- NOTE | 2018-06-16 05:34 | ER Document Report ---
HPI - HPI Time Seen by Provider: 06/16/18 05:20 Pain Level: 5 Context: Patient is a 33-year-old female that comes to the emergency department for chief complaint of right-sided facial swelling. She states she has a fractured tooth and and upper gumline dental infection, she was started on clindamycin yesterday, she has had 3 doses total, she states swelling has increased. She denies fever chills, difficulty swallowing, or any other complaints. LMP within the past month. - REPRODUCTIVE Reproductive: REPORTS: : Past Medical History - General Information source: Patient - Social History Smoking Status: Never Smoker Drug Abuse: None Lives with: Spouse/Significant other Family History: Reviewed & Not Pertinent, CAD, DM, Hypertension, Other - CHF. denies: Arthritis, COPD, CVA, Hyperlipidemia, Malignancy, Thyroid Disfunction Pulmonary Medical History: Reports: Hx Pneumonia Renal/ Medical History: Reports: Hx Ovarian Cysts. Denies: Hx Peritoneal Dialysis Past Surgical History: Reports: Hx Adenoidectomy, Hx Gynecologic Surgery - left ovary removed due to cyst, Hx Oral Surgery - [place] teeth, Hx Tonsillectomy - Immunizations Hx Diphtheria, Pertussis, Tetanus Vaccination: Yes Vertical Provider Document - CONSTITUTIONAL General Appearance: Mild Distress, Obese - INFECTION CONTROL TRAVEL OUTSIDE OF THE [place] IN LAST 30 DAYS: No - HEENT HEENT: Atraumatic, Normocephalic, PERRLA. negative: Conjuctival Injection, Pharyngeal Exudate, Pharyngeal Tenderness, Tympanic Membrane Red, Tympanic Membrane Bulging Mouth Diagram: 1 - Erythema and swelling of the gumline with a fluctuant head and nearby dental caries, otherwise unremarkable oral pharyngeal exam - NECK Neck: Normal Inspection. negative: Lymphadenopathy-Left, Lymphadenopathy-Right - RESPIRATORY Respiratory: Breath Sounds Normal, No Respiratory Distress - CARDIOVASCULAR Cardiovascular: Regular Rate, Regular Rhythm - GI/ABDOMEN Gastrointestinal: Abdomen Soft, Abdomen Non-Tender - NEURO Level of Consciousness: Awake, Alert, Appropriate Motor/Sensory: No Motor Deficit, No Sensory Deficit - DERM Integumentary: Warm, Dry, No Rash Course - Re-evaluation Re-evalutation: Patient has a large abscess with a head at the right upper gumline, this was palpated and broke open with resultant heavy purulent drainage, swelling significantly improved, pain improved, because of the moderate amount of opening decision was made to not increase the area with incision. Patient provided with pain medicine. She will continue on her clindamycin. She already is planning on follow-up with the dental clinic. Discussed return precautions with patient. She states understanding and agreement. - Vital Signs Vital signs: Temp Pulse Resp BP Pulse Ox 98.2 F 92 19 149/85 H 99 06/16/18 03:29 06/16/18 03:29 06/16/18 03:29 06/16/18 03:29 06/16/18 03:29 Discharge - Discharge Clinical Impression: Oral abscess, Dental infection Condition: Stable Disposition: HOME, SELF-CARE Additional Instructions: You have an oral abscess but this is now draining. This should continue to drain over the next couple of days. You can do mouth rinses. Continue clindamycin as prescribed. Follow-up with the dental clinic or this will continue to occur. Return if you worsen including increased swelling, fever, increased pain, or any other concerning or worsening symptoms. Forms: Return to Work
[2018-06-16 05:50] VITALS: BP 135/83
== END 2018-06-16 05:50 | disposition home or self-care (01) ==
LOC: ER 03:20
DX: K04.7 Periapical abscess without sinus (principal); R22.0 Localized swelling, mass and lump, head
CPT/HCPCS: 99283; 96372; S0119; J2270

== ENCOUNTER → 2018-06-30 | Outpatient (CLI) | payer MEDICAID ==
[2018-06-30 12:55] LABS: ABSOLUTE BASOPHILS # (AUTO) 0.1 10^3/uL (0.0-0.2); ABSOLUTE EOSINOPHILS # (AUTO) 0.2 10^3/uL (0.0-0.6); ABSOLUTE LYMPHOCYTES (AUTO) 2.1 10^3/uL (0.5-4.7); ABSOLUTE MONOCYTES (AUTO) 0.9 10^3/uL (0.1-1.4); BASOPHILS % (AUTO) 0.9 % (0-2); EOSINOPHILS % (AUTO) 2.5 % (0-6); HEMATOCRIT 38.2 % (36.0-47.0); HEMOGLOBIN 12.4 g/dL (12.0-15.5); LYMPHOCYTES % (AUTO) 25.4 % (13-45); MEAN CORPUSCULAR HEMOGLOBIN 26.8 pg (27.0-33.4); MEAN CORPUSCULAR HGB CONC 32.4 g/dL (32.0-36.0); MEAN CORPUSCULAR VOLUME 83 fl (80-97); MONOCYTES % (AUTO) 10.9 % (3-13); PLATELET COUNT 264 10^3/uL (150-450); RED BLOOD COUNT 4.61 10^6/uL (3.72-5.28); RED CELL DISTRIBUTION WIDTH 15.5 % (11.5-14.0); SEGMENTED NEUTROPHILS % (AUTO) 60.3 % (42-78); TOTAL CELLS COUNTED % (AUTO) 100 %; WHITE BLOOD COUNT 8.3 10^3/uL (4.0-10.5)
[2018-06-30 13:18] LABS: ALANINE AMINOTRANSFERASE 23 U/L (9-52); ALBUMIN 4.1 g/dL (3.5-5.0); ALKALINE PHOSPHATASE 74 U/L (38-126); ANION GAP 8 (5-19); ASPARTATE AMINO TRANSFERASE 21 U/L (14-36); BILIRUBIN,DIRECT 0.3 mg/dL (0.0-0.4); BILIRUBIN,TOTAL 0.5 mg/dL (0.2-1.3); BLOOD UREA NITROGEN 8 mg/dL (7-20); CALCIUM 9.2 mg/dL (8.4-10.2); CARBON DIOXIDE 25 mmol/L (22-30); CHLORIDE 107 mmol/L (98-107); GLUCOSE 78 mg/dL (75-110); POTASSIUM 4.5 mmol/L (3.6-5.0); SODIUM 139.8 mmol/L (137-145); TOTAL PROTEIN 7.3 g/dL (6.3-8.2)
== END ==
LOC: OD 11:23
PROVIDERS: ATTEND Specialist
DX: O00.90 Unspecified ectopic pregnancy without intrauterine pregnancy (principal)
CPT/HCPCS: 36415; 80053; 84702; 85025

== ENCOUNTER 2018-12-22 05:48 | Emergency (ER) | payer MEDICAID ==
[2018-12-22 05:55] VITALS: BP 135/88
--- NOTE | 2018-12-22 08:31 | ER Document Report ---
ED General - General Chief Complaint: Foreign Body in Ear Stated Complaint: FOREIGN BODY IN EAR Time Seen by Provider: 12/22/18 08:30 TRAVEL OUTSIDE OF THE [place] IN LAST 30 DAYS: No - HPI Notes: 33-year-old female to the emergency department with complaints of a rash stuck in her ear for the past 4 hours. She is attempted at home to try to get the ward out. She states now her ear is sore. She denies any fevers, chills, chest pain, shortness of breath, nausea vomiting diarrhea, dizziness. She states her last tetanus was in 2002 but declines new tetanus today. - Related Data Allergies/Adverse Reactions: Penicillins Allergy (Verified 07/02/18 10:42) Past Medical History - General Information source: Patient, Relative - Social History Smoking Status: Never Smoker Frequency of alcohol use: None Drug Abuse: None Family History: CAD, DM, Hypertension, None, Reviewed & Not Pertinent, Other Patient has suicidal ideation: No Patient has homicidal ideation: No Pulmonary Medical History: Reports: Hx Pneumonia Renal/ Medical History: Reports: Hx Ovarian Cysts. Denies: Hx Peritoneal Dialysis Past Surgical History: Reports: Hx Adenoidectomy, Hx Gynecologic Surgery - L ovary removal, Hx Oral Surgery - [place] teeth, Hx Tonsillectomy - addenoids - Immunizations Hx Diphtheria, Pertussis, Tetanus Vaccination: Yes Review of Systems - Review of Systems Constitutional: denies: Chills, Fever EENT: See HPI, Ear pain Cardiovascular: denies: Chest pain, Palpitations, Dyspnea, Syncope, Dizziness, Lightheaded Respiratory: denies: Cough, Short of breath Gastrointestinal: denies: Abdominal pain, Diarrhea, Nausea, Vomiting Genitourinary: No symptoms reported Musculoskeletal: No symptoms reported Skin: No symptoms reported Neurological/Psychological: No symptoms reported -: Yes All other systems reviewed and negative Physical Exam - Vital signs Vitals: Temp Pulse Resp BP Pulse Ox 98.0 F 79 18 135/88 H 95 12/22/18 05:53 12/22/18 05:53 12/22/18 05:53 12/22/18 05:53 12/22/18 05:53 Interpretation: Normal - General General appearance: Anxious - HEENT Head: Normocephalic, Atraumatic Eyes: Normal Pupils: PERRL Ears: Normal External canal: Erythema, Foreign body - There is noted insect in the ear canal; canal is erythematous and moderately edematous. There appears to be no active blood in the canal, Swollen Tympanic membrane: Normal Sinus: Normal Nasal: Normal Mouth/Lips: Normal Mucous membranes: Normal Pharynx: Normal Neck: Normal - Respiratory Respiratory status: No respiratory distress Chest status: Nontender Breath sounds: Normal Chest palpation: Normal - Cardiovascular Rhythm: Regular Heart sounds: Normal auscultation Murmur: No - Abdominal Inspection: Normal Distension: No distension Bowel sounds: Normal Tenderness: Nontender Organomegaly: No organomegaly - Neurological Neuro grossly intact: Yes Cognition: Normal Orientation: AAOx4 [place] Coma Scale Eye Opening: Spontaneous [place] Coma Scale Verbal: Oriented [place] Coma Scale Motor: Obeys Commands [place] Coma Scale Total: 15 Speech: Normal Motor strength normal: LUE, RUE, LLE, RLE Sensory: Normal - Psychological Associated symptoms: Normal affect, Normal mood - Skin Skin Temperature: Warm Skin Moisture: Dry Skin Color: Normal Course - Re-evaluation Re-evalutation: 12/22/18 Attempted for body removal with cerumen spoon, forceps, irrigation. Patient could not tolerate any of the options available for her today despite multiple attempts. Was able to get part of the insect out but still remaining in ear half of the body and wings. We will plan on sending patient to the ENT. Call at [facility] and made an appointment for the patient prior to 15 this afterno on. We will go ahead and start on antibiotics oral and drops and give Motrin. I discussed this option with patient and she agrees. After calling [facility], I rounded on the patient and found her in the bathroom with a cerumen spoon trying to take out the insect herself even though she had asked for us to stop her attempts at getting the bug out. I asked her to stop trying to attempt to get it out as it would cause more damage to her ear canal. I will write her a note for work today so that she can go to her ENT appointment as scheduled. Impression: Foreign body in left ear. Unsuccessful foreign body removal. Patient to see ENT this afternoon 2:15. She and her agree with the plan. - Vital Signs Vital signs: Temp Pulse Resp BP Pulse Ox 98.0 F 79 18 135/88 H 95 12/22/18 05:53 12/22/18 05:53 12/22/18 05:53 12/22/18 05:53 12/22/18 05:53 Discharge - Discharge Clinical Impression: Foreign body in ear Qualifiers: Encounter type: initial encounter Laterality: left Qualified Code(s): T16.2XXA - Foreign body in left ear, initial encounter Condition: Stable Disposition: HOME, SELF-CARE Instructions: Foreign Body ([facility]) Additional Instructions: PLEASE CALL ENT FOR FURTHER MANAGEMENT and REMOVAL. TAKE MEDICINE PRESCRIBED. COMPLETE ANTIBIOTICS. PUSH FLUIDS. RETURN IF WORSE. Prescriptions: Azithromycin 500 mg PO DAILY #5 tablet Ibuprofen [Motrin 800 mg Tablet] 800 mg PO Q8H PRN #30 tab PRN Reason: Neomy Sulf/Polymyx B Sulf/Hc [Cortisporin Ear Suspension] 10 ml OT TID #1 bottle Forms: Return to Work Referrals: TOMMY KNIGHT MD [ACTIVE STAFF] - 12/22/18 (GO TO THE OFFICE AT 2:15 PM)
[2018-12-22] MEDS ORDERED: IBUPROFEN 600 MG TABLET PO ONE (09:09)
== END 2018-12-22 09:20 | disposition home or self-care (01) ==
LOC: ER 05:48
DX: T16.2XXA Foreign body in left ear, initial encounter (principal); X58.XXXA Exposure to other specified factors, initial encounter
CPT/HCPCS: 99282; J3490

== ENCOUNTER 2019-03-28 05:11 | Emergency (ER) | payer MEDICAID ==
[2019-03-28] MEDS ORDERED: KETOROLAC TROMETHAMINE INJ/PF 30 MG/1 ML SDV IV ONE (05:48)
[2019-03-28] MEDS ORDERED: ONDANSETRON HCL INJ/PF 4 MG/2 ML SDV IV ONE (05:48)
--- NOTE | 2019-03-28 05:54 | ER Document Report ---
ED Medical Screen (RME) - General Chief Complaint: Flank Pain Stated Complaint: FLANK PAIN Time Seen by Provider: 03/28/19 05:28 Primary Care Provider: LITO BARGER PA [Primary Care Provider] - Follow up as needed Notes: 33-year-old female with chief complaint of intermittent discomfort with urination and also generalized abdominal pain that is worse in the upper abdomen. She states she vomited earlier today. She also reports pain radiating to both flanks. She states that symptoms have actually been going on for "a while". She denies fever/chills, vaginal bleeding or discharge, or any other complaints. TRAVEL OUTSIDE OF THE [place] IN LAST 30 DAYS: No - Related Data Allergies/Adverse Reactions: Penicillins Allergy (Verified 07/02/18 10:42) Home Medications: acid reflux med Past Medical History - Social History Chew tobacco use (# tins/day): No Frequency of alcohol use: Occasional Drug Abuse: None Pulmonary Medical History: Reports: Hx Pneumonia Renal/ Medical History: Reports: Hx Ovarian Cysts. Denies: Hx Peritoneal Dialysis Past Surgical History: Reports: Hx Adenoidectomy, Hx Gynecologic Surgery - L ovary removal, Hx Oral Surgery - [place] teeth, Hx Tonsillectomy - addenoids - Immunizations Hx Diphtheria, Pertussis, Tetanus Vaccination: Yes Physical Exam - Vital signs Vitals: Temp Pulse Resp BP Pulse Ox 97.3 F 78 16 112/67 100 03/28/19 05:16 03/28/19 05:16 03/28/19 05:16 03/28/19 05:16 03/28/19 05:16 - Abdominal Tenderness: Tender - Minimal upper abdominal tenderness, completely benign lower abdominal exam Course - Re-evaluation Re-evalutation: I have greeted and performed a rapid initial assessment of this patient. A comprehensive ED assessment and evaluation of the patient, analysis of test results and completion of the medical decision making process will be conducted by additional ED providers. - Vital Signs Vital signs: Temp Pulse Resp BP Pulse Ox 97.3 F 78 16 112/67 100 03/28/19 05:16 03/28/19 05:16 03/28/19 05:16 03/28/19 05:16 03/28/19 05:16 Doctor's Discharge - Discharge Referrals: LITO BARGER PA [Primary Care Provider] - Follow up as needed
--- NOTE | 2019-03-28 06:34 | ER Document Report ---
ED General - General Chief Complaint: Flank Pain Stated Complaint: FLANK PAIN Time Seen by Provider: 03/28/19 05:28 Primary Care Provider: LITO BARGER PA [Primary Care Provider] - Follow up as needed Mode of Arrival: Ambulatory Information source: Patient Notes: 33-year-old female presents to the department with a complaint of bilateral back pain and upper abdominal pain which is been ongoing for the past 3 weeks. She denies a known history of injury, or any prior history of similar episodes. 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 Using ibuprofen for pain and has had some relief, however has noticed intermittent episodic flareups of pain. This morning her pain began at approximately 3 AM and she was unable to get back to sleep, presented to the emergency department for further evaluation and treatment. TRAVEL OUTSIDE OF THE [place] IN LAST 30 DAYS: No - Related Data Allergies/Adverse Reactions: Penicillins Allergy (Verified 07/02/18 10:42) Home Medications: acid reflux med Past Medical History - Social History Smoking Status: Current Every Day Smoker Chew tobacco use (# tins/day): No Frequency of alcohol use: Occasional Drug Abuse: None Family History: CAD, DM, Hypertension, None, Reviewed & Not Pertinent, Other Patient has suicidal ideation: No Patient has homicidal ideation: No Pulmonary Medical History: Reports: Hx Pneumonia Renal/ Medical History: Reports: Hx Ovarian Cysts. Denies: Hx Peritoneal Dialysis Past Surgical History: Reports: Hx Adenoidectomy, Hx Gynecologic Surgery - L ovary removal, Hx Oral Surgery - [place] teeth, Hx Tonsillectomy - addenoids - Immunizations Hx Diphtheria, Pertussis, Tetanus Vaccination: Yes Review of Systems - Review of Systems Notes: REVIEW OF SYSTEMS: CONSTITUTIONAL : Denies fever, chills, or sweats. Denies recent illness. EENT: Denies eye, ear, throat, or mouth pain or symptoms. Denies nasal or sinus congestion. CARDIOVASCULAR: Denies chest pain. RESPIRATORY: Denies cough, cold, or chest congestion. Denies shortness of breath, difficulty breathing, or wheezing. GASTROINTESTINAL: +epigastric abdominal pain. Denies nausea, vomiting, or diarrhea. Denies constipation. Last BM: GENITOURINARY: Denies difficulty urinating, painful urination, burning, frequency, or blood in urine. FEMALE GENITOURINARY: Denies vaginal bleeding, abnormal or irregular periods. LMP: MUSCULOSKELETAL: +back pain or joint pain or swelling. SKIN: Denies rash or skin lesions. HEMATOLOGIC : Denies easy bruising or bleeding. LYMPHATIC: Denies swollen, enlarged glands. NEUROLOGICAL: Denies altered mental status or loss of consciousness. Denies headache. Denies weakness or paralysis or loss of use of either side. Denies problems with gait or speech. Denies sensory or motor loss. PSYCHIATRIC: Denies anxiety or stress or depression. ALL OTHER SYSTEMS REVIEWED AND NEGATIVE. Physical Exam - Vital signs Vitals: Temp Pulse Resp BP Pulse Ox 97.3 F 78 16 112/67 100 03/28/19 05:16 03/28/19 05:16 03/28/19 05:16 03/28/19 05:16 03/28/19 05:16 - Notes Notes: Reviewed vital signs and nursing note as charted by RN. CONSTITUTIONAL: Well-appearing, overweight female in NAD HEAD: Normocephalic; atraumatic; No swelling EYES: PERRL; Conjunctivae clear, no drainage; EOMI ENT: normal; Pharynx without erythema or lesions, no tonsillar hypertrophy, airway patent, mucous membranes pink and moist NECK: Supple, no cervical lymphadenopathy, no masses CARD: Regular rate and rhythm; no murmurs, no rubs, no gallops, capillary refill < 2 seconds, symmetric pulses RESP: Lungs Clear ABD/GI: \+ epigastric tenderness, Normal bowel sounds; non-distended; soft, no rebound, no guarding, no palpable organomegaly Back:Rt paraspinous tenderness.Lt nontender, no midline spinous tenderness, no deformity. EXT: Normal ROM in all joints; non-tender to palpation; no effusions, no edema SKIN: Normal color for age and race; warm; dry; good turgor; no acute lesions noted NEURO: No facial asymmetry; Moves all extremities equally; Motor and sensory function intact Course - Re-evaluation Re-evalutation: 03/28/19 09:28 Electrolyte imbalance, muscle spasm, ligamentous strain, UTI Patient has improved significantly after Toradol and Zofran. States her pain is much better. I have reviewed reviewed the lab reports and explained to the patient that her symptoms appear to be musculoskeletal in nature. Is being discharged home with muscle relaxant and anti-inflammatory medication and instr uctions to begin some back exercise, stretching. She acknowledges this plan and is agreeable. - Vital Signs Vital signs: Temp Pulse Resp BP Pulse Ox 98.0 F 58 L 16 124/72 99 03/28/19 08:48 03/28/19 08:48 03/28/19 08:48 03/28/19 08:48 03/28/19 08:48 - Laboratory Result Diagrams: 03/28/19 06:52 03/28/19 06:52 Laboratory results interpreted by me: 03/28/19 03/28/19 03/28/19 06:52 06:52 06:52 RDW 16.4 H Lymph % (Auto) 12.7 L Seg Neutrophils % 78.3 H Chloride 110 H Urine Blood LARGE H I have reviewed laboratory data and used this information and the treatment decisions regarding the patient. Discharge - Discharge Clinical Impression: Muscle spasm of back Disposition: HOME, SELF-CARE Instructions: Low Back Pain ([facility]) Referrals: LITO BARGER PA [Primary Care Provider] - Follow up as needed
[2019-03-28 07:13] LABS: ABSOLUTE EOSINOPHILS # (AUTO) 0.1 10^3/uL (0.0-0.6); ABSOLUTE LYMPHOCYTES (AUTO) 1.1 10^3/uL (0.5-4.7); ABSOLUTE MONOCYTES (AUTO) 0.7 10^3/uL (0.1-1.4); ABSOLUTE NEUT (AUTO) 6.7 10^3/uL (1.7-8.2); BASOPHILS % (AUTO) 0.4 % (0-2); EOSINOPHILS % (AUTO) 0.6 % (0-6); HEMATOCRIT 39.3 % (36.0-47.0); HEMOGLOBIN 12.9 g/dL (12.0-15.5); LYMPHOCYTES % (AUTO) 12.7 % (13-45); MEAN CORPUSCULAR HEMOGLOBIN 27.5 pg (27.0-33.4); MEAN CORPUSCULAR HGB CONC 32.8 g/dL (32.0-36.0); MEAN CORPUSCULAR VOLUME 84 fl (80-97); PLATELET COUNT 272 10^3/uL (150-450); RED CELL DISTRIBUTION WIDTH 16.4 % (11.5-14.0); SEGMENTED NEUTROPHILS % (AUTO) 78.3 % (42-78); TOTAL CELLS COUNTED % (AUTO) 100 %; WHITE BLOOD COUNT 8.6 10^3/uL (4.0-10.5)
[2019-03-28 07:28] LABS: ALBUMIN 3.5 g/dL (3.5-5.0); ALKALINE PHOSPHATASE 57 U/L (38-126); ANION GAP 6 (5-19); ASPARTATE AMINO TRANSFERASE 21 U/L (14-36); BILIRUBIN,DIRECT 0.1 mg/dL (0.0-0.4); BILIRUBIN,TOTAL 0.3 mg/dL (0.2-1.3); BLOOD UREA NITROGEN 13 mg/dL (7-20); CARBON DIOXIDE 25 mmol/L (22-30); CHLORIDE 110 mmol/L (98-107); GLUCOSE 80 mg/dL (75-110); POTASSIUM 4.5 mmol/L (3.6-5.0); TOTAL PROTEIN 6.6 g/dL (6.3-8.2)
[2019-03-28 07:30] LABS: APPEARANCE,URINE CLEAR; BILIRUBIN,URINE NEGATIVE (NEGATIVE); COLOR,URINE YELLOW; GLUCOSE, URINE NEGATIVE (NEGATIVE); KETONES,URINE NEGATIVE (NEGATIVE); LEUKOCYTE ESTERASE,URINE NEGATIVE (NEGATIVE); NITRITE,URINE NEGATIVE (NEGATIVE); PROTEIN,URINE NEGATIVE (NEGATIVE); URINE SPECIFIC GRAVITY 1.025; UROBILINOGEN,URINE NEGATIVE mg/dL (<2.0)
[2019-03-28 08:52] VITALS: BP 124/72
== END 2019-03-28 09:59 | disposition home or self-care (01) ==
LOC: ER 05:11
DX: M62.830 Muscle spasm of back (principal); R10.13 Epigastric pain; R10.816 Epigastric abdominal tenderness; F17.200 Nicotine dependence, unspecified, uncomplicated; Z88.0 Allergy status to penicillin
CPT/HCPCS: 36415; 83690; 84703; 85025; 80053; 81001; J1885; J2405; 96374; 96375; 99284

== ENCOUNTER 2019-04-26 18:10 | Emergency (ER) | payer MEDICAID ==
[2019-04-26] MEDS ORDERED: ACETAMINOPHEN 325 MG TABLET PO ONE (18:57)
--- NOTE | 2019-04-26 18:59 | ER Document Report ---
ED Medical Screen (RME) - General Chief Complaint: Pain All Over Stated Complaint: BODY ACHES,COUGH,CONGESTION Time Seen by Provider: 04/26/19 18:54 Primary Care Provider: LITO BARGER PA [Primary Care Provider] - Follow up as needed Mode of Arrival: Ambulatory Information source: Patient Notes: 33-year-old female presented to ED for complaint of fever chills body aches difficulty moving around due to fever and body aches. Patient states all symptoms started yesterday. She states she did have a cough but otherwise she has had no symptoms. Abscess work-up was started patient was given Tylenol 975 IV fluids ordered. Influenza test ordered. I have greeted and performed a rapid initial assessment of this patient. A comprehensive ED assessment and evaluation of the patient, analysis of test results and completion of medical decision making process will be conducted by an additional ED providers. TRAVEL OUTSIDE OF THE [place] IN LAST 30 DAYS: No - Related Data Allergies/Adverse Reactions: Penicillins Allergy (Verified 07/02/18 10:42) Past Medical History Pulmonary Medical History: Reports: Hx Pneumonia Renal/ Medical History: Reports: Hx Ovarian Cysts. Denies: Hx Peritoneal Dialysis Past Surgical History: Reports: Hx Adenoidectomy, Hx Gynecologic Surgery - L ovary removal, Hx Oral Surgery - [place] teeth, Hx Tonsillectomy - addenoids - Immunizations Hx Diphtheria, Pertussis, Tetanus Vaccination: Yes Physical Exam - Vital signs Vitals: Temp Pulse Resp BP Pulse Ox 102.1 F H 128 H 18 132/73 H 96 04/26/19 18:14 04/26/19 18:14 04/26/19 18:14 04/26/19 18:14 04/26/19 18:14 Course - Vital Signs Vital signs: Temp Pulse Resp BP Pulse Ox 99.0 F 128 H 19 119/67 98 04/26/19 21:12 04/26/19 18:14 04/26/19 21:01 04/26/19 21:01 04/26/19 21:01 - Laboratory Result Diagrams: 04/26/19 20:12 04/26/19 20:12 Laboratory results interpreted by me: 04/26/19 04/26/19 04/26/19 20:12 20:12 20:12 WBC 24.6 H MCH 26.8 L RDW 15.3 H Seg Neuts % (Manual) 87 H Lymphocytes % (Manual) 4 L Abs Neuts (Manual) 22.1 H Abs Monocytes (Manual) 1.5 H PT 15.9 H VBG pH VBG pCO2 Sodium 134.7 L Potassium 3.4 L Carbon Dioxide 21 L POC Glucose Urine Protein Urine Ketones Urine Blood 04/26/19 04/26/19 04/26/19 20:12 20:45 20:50 WBC MCH RDW Seg Neuts % (Manual) Lymphocytes % (Manual) Abs Neuts (Manual) Abs Monocytes (Manual) PT VBG pH 7.47 H VBG pCO2 31.4 L Sodium Potassium Carbon Dioxide POC Glucose 115 H Urine Protein 30 H Urine Ketones 80 H Urine Blood SMALL H Doctor's Discharge - Discharge Referrals: LITO BARGER PA [Primary Care Provider] - Follow up as needed
--- NOTE | 2019-04-26 19:24 | RADIOLOGY REPORT (SQ) ---
EXAM DESCRIPTION: CHEST 2 VIEWS COMPLETED DATE/TIME: 04/26/2019 7:15 pm REASON FOR STUDY: cough fever COMPARISON: PA and lateral views of the chest from 05/18/2018. EXAM PARAMETERS: NUMBER OF VIEWS: two views TECHNIQUE: PA and lateral views of the chest were obtained. RADIATION DOSE: NA LIMITATIONS: none FINDINGS: LUNGS AND PLEURA: No consolidation, pleural effusion or pneumothorax. MEDIASTINUM AND HILAR STRUCTURES: No mediastinal or hilar contour abnormality. HEART AND VASCULAR STRUCTURES: The cardiac silhouette and pulmonary vasculature are within normal aguilar its. BONES: No acute findings. HARDWARE: None in the chest. OTHER: No other finding. IMPRESSION: No acute cardiopulmonary process. TECHNICAL DOCUMENTATION: JOB ID: [id number] [employer]- All Rights Reserved Reading location - IP/workstation name: [email or web address]
[2019-04-26] MEDS: NORMAL SALINE 1000 ML 1,000 ML IV PRN ×2 (20:29→20:30)
[2019-04-26 20:39] LABS: VENOUS BLOOD BASE EXCESS -0.4 mmol/L; VENOUS BLOOD HCO3 22.3 mmol/L (20-32); VENOUS BLOOD PCO2 31.4 mmHg (35-63); VENOUS BLOOD PH 7.47 (7.30-7.42)
[2019-04-26 20:42] LABS: HEMATOCRIT 40.3 % (36.0-47.0); HEMOGLOBIN 13.2 g/dL (12.0-15.5); MEAN CORPUSCULAR HEMOGLOBIN 26.8 pg (27.0-33.4); MEAN CORPUSCULAR HGB CONC 32.8 g/dL (32.0-36.0); MEAN CORPUSCULAR VOLUME 82 fl (80-97); PLATELET COUNT 234 10^3/uL (150-450); RED BLOOD COUNT 4.94 10^6/uL (3.72-5.28); RED CELL DISTRIBUTION WIDTH 15.3 % (11.5-14.0); WHITE BLOOD COUNT 24.6 10^3/uL (4.0-10.5)
[2019-04-26 20:55] LABS: INTERNATIONAL RATION (INR) 1.26; PROTHROMBIN TIME 15.9 SEC (11.4-15.4)
[2019-04-26 21:01] LABS: ABSOLUTE MONOCYTES # (MANUAL) 1.5 10^3/uL (0.1-1.4); BAND NEUTROPHILS % (MANUAL) 3 % (3-5); BASOPHILS % (MANUAL) 0 % (0-2); EOSINOPHILS % (MANUAL) 0 % (0-6); LYMPHOCYTES % (MANUAL) 4 % (13-45); MONOCYTES % (MANUAL) 6 % (3-13); SEGMENTED NEUTROPHILS % (MAN) 87 % (42-78); TOTAL CELLS COUNTED 100
[2019-04-26 21:02] LABS: ANISOCYTOSIS SLIGHT; PLATELET COMMENT ADEQUATE
[2019-04-26 21:05] LABS: A TYPE INFLUENZA AG NEGATIVE (NEGATIVE); B INFLUENZA AG NEGATIVE (NEGATIVE)
[2019-04-26 21:12] LABS: APPEARANCE,URINE CLEAR; BILIRUBIN,URINE NEGATIVE (NEGATIVE); COLOR,URINE YELLOW; GLUCOSE, URINE NEGATIVE (NEGATIVE); KETONES,URINE 80 mg/dL (NEGATIVE); PROTEIN,URINE 30 mg/dL (NEGATIVE); URINE SPECIFIC GRAVITY 1.013; UROBILINOGEN,URINE NEGATIVE mg/dL (<2.0)
[2019-04-26 21:15] LABS: ALBUMIN 3.7 g/dL (3.5-5.0); ALKALINE PHOSPHATASE 61 U/L (38-126); ANION GAP 11 (5-19); ASPARTATE AMINO TRANSFERASE 23 U/L (14-36); BILIRUBIN,DIRECT 0.2 mg/dL (0.0-0.4); BILIRUBIN,TOTAL 0.4 mg/dL (0.2-1.3); BLOOD UREA NITROGEN 7 mg/dL (7-20); CALCIUM 9.1 mg/dL (8.4-10.2); CARBON DIOXIDE 21 mmol/L (22-30); CHLORIDE 103 mmol/L (98-107); GLUCOSE 101 mg/dL (75-110); POTASSIUM 3.4 mmol/L (3.6-5.0); TOTAL PROTEIN 6.9 g/dL (6.3-8.2)
[2019-04-26] MEDS ORDERED: DEXAMETHASONE SOD PHOS INJ 10 MG/1 ML VIAL IV ONE (21:47)
[2019-04-26] MEDS ORDERED: KETOROLAC TROMETHAMINE INJ/PF 30 MG/1 ML SDV IV ONE (21:47)
[2019-04-26] MEDS ORDERED: CEFTRIAXONE 1 GM/D5W RTU 1 GM/50 ML RTUPB IV ONE (21:47)
[2019-04-26] MEDS ORDERED: IPRATROPIUM/ALBUTEROL 0.5-2.5 MG/3 ML AMPUL NEB ONE (21:49)
[2019-04-26] MEDS ORDERED: ONDANSETRON HCL INJ/PF 4 MG/2 ML SDV IV ONE (21:52)
[2019-04-26] MEDS ORDERED: POTASSIUM CHLORIDE 20 MEQ PACKET PO ONE (21:54)
--- NOTE | 2019-04-26 21:55 | ER Document Report ---
ED Fever - General Chief Complaint: Fever Stated Complaint: BODY ACHES,COUGH,CONGESTION Time Seen by Provider: 04/26/19 18:54 Primary Care Provider: LITO BARGER PA [Primary Care Provider] - Follow up as needed Mode of Arrival: Ambulatory Information source: Patient Notes: Ms. Marquez is an otherwise healthy 33 yo f sending to the ED for multiple complaints. Patient states she has a cough productive of white/yellow sputum. She endorses subjective fever and chills, nausea and decreased p.o. intake over the past 2 days. Patient states that her illness began approximately 2 to 3 days ago but has been worsening progressively. She endorses sore throat, diffus e back pain and full swallowing with eating. She endorses nausea without any vomiting or diarrhea as well as left upper/epigastric abdominal pain. No chest pain. No known ill contacts. Patient states that she had a rash previously with penicillins. TRAVEL OUTSIDE OF THE [place] IN LAST 30 DAYS: No - Related Data Allergies/Adverse Reactions: Penicillins Allergy (Verified 07/02/18 10:42) Past Medical History - General Information source: Patient - Social History Smoking Status: Current Every Day Smoker Family History: CAD, DM, Hypertension, None, Reviewed & Not Pertinent, Other Patient has suicidal ideation: No Patient has homicidal ideation: No Pulmonary Medical History: Reports: Hx Pneumonia Renal/ Medical History: Reports: Hx Ovarian Cysts. Denies: Hx Peritoneal Dialysis Past Surgical History: Reports: Hx Adenoidectomy, Hx Gynecologic Surgery - L ovary removal, Hx Oral Surgery - [place] teeth, Hx Tonsillectomy - addenoids - Immunizations Hx Diphtheria, Pertussis, Tetanus Vaccination: Yes Review of Systems - Review of Systems Constitutional: See HPI EENT: See HPI Cardiovascular: No symptoms reported Respiratory: No symptoms reported Gastrointestinal: No symptoms reported Genitourinary: No symptoms reported Female Genitourinary: No symptoms reported Musculoskeletal: No symptoms reported Skin: No symptoms reported Hematologic/Lymphatic: No symptoms reported Neurological/Psychological: No symptoms reported Physical Exam - Vital signs Vitals: Temp Pulse Resp BP Pulse Ox 102.1 F H 128 H 18 132/73 H 96 04/26/19 18:14 04/26/19 18:14 04/26/19 18:14 04/26/19 18:14 04/26/19 18:14 Interpretation: Tachypneic, Febrile - General General appearance: Alert, Other - Ill-appearing but nontoxic In distress: Mild - HEENT Head: Normocephalic, Atraumatic Eyes: Normal Pupils: PERRL Mucous membranes: Moist Pharynx: Erythema, Exudate, Tonsillar hypertrophy - Significantly swollen tonsils bilaterally, equal and symmetric with exudate throughout. Uvula midline.. No: Uvular edema, Potential airway comprom. Neck: Anterior cervical chain, Lymphadenopathy. No: Brudzinski, Kernig's, Meningismus - Respiratory Respiratory status: No respiratory distress. No: Respiratory distress Chest status: Nontender Breath sounds: Wheezing - Mild expiratory wheezing throughout. Chest palpation: Normal - Cardiovascular Rhythm: Regular Heart sounds: Normal auscultation Murmur: No - Abdominal Inspection: Normal Distension: No distension Bowel sounds: Normal Tenderness: Tender - Mild epigastric and left upper quadrant tenderness palpation.. No: Guarding, Rebound Organomegaly: No organomegaly - Back Back: Normal, Nontender - Extremities General upper extremity: Normal inspection, Nontender, Normal color, Normal ROM, Normal temperature General lower extremity: Normal inspection, Nontender, Normal color, Normal ROM, Normal temperature, Normal weight bearing. No: Shahid's sign - Neurological Neuro grossly intact: Yes Cognition: Normal Orientation: AAOx4 [place] Coma Scale Eye Opening: Spontaneous [place] Coma Scale Verbal: Oriented [place] Coma Scale Motor: Obeys Commands [place] Coma Scale Total: 15 Speech: Normal Motor strength normal: LUE, RUE, LLE, RLE Sensory: Normal - Psychological Associated symptoms: Normal affect, Normal mood - Skin Skin Temperature: Warm Skin Moisture: Dry Skin Color: Normal Course - Re-evaluation Re-evalutation: Patient is ill-appearing but nontoxic. Initial vitals notable for tachycardia and fever. Differential diagnosis includes URI, influenza, strep pharyngitis, sepsis (less likely), pneumonia 04/26/19 21:52 Patient had extensive work-up as well as IV fluids ordered from triage. Labs notable for leukocytosis without significant left shift. H&H is stable. CMP notable for mild hypokalemia. No significant lactic acidosis. Chest x-ray within normal limits. Influenza a and B are both negative however patient is positive for strep pharyngitis. Likely causing the ongoing nausea, and epigastric pain as well as the significant throat with dysphasia. 04/26/19 21:59 Patient ordered for dexamethasone for the pharyngeal swelling as well as ceftriaxone for the strep pharyngitis. Patient will be ordered for Zofran for her nausea as well as Toradol for her back pain and overall myalgias. Will reassess vitals and have the patient p.o. challenge. Patient had some mild hypokalemia therefore will be ordered for p.o. potassium. 04/27/19 01:46 Patient was able to tolerate p.o. without any issues. Vitals have improved. Patient will be discharged with Keflex given that she tolerated the ceftriaxone while in the ED. Patient given return precautions and recommended to eat a soft/bland diet for the next few days until her pharyngitis has improved. - Vital Signs Vital signs: Temp Pulse Resp BP Pulse Ox 98.9 F 128 H 15 122/107 H 98 04/27/19 00:47 04/26/19 18:14 04/27/19 01:00 04/27/19 01:01 04/27/19 01:00 - Laboratory Result Diagrams: 04/26/19 20:12 04/26/19 20:12 Laboratory results interpreted by me: 04/26/19 04/26/19 04/26/19 20:12 20:12 20:12 WBC 24.6 H MCH 26.8 L RDW 15.3 H Seg Neuts % (Manual) 87 H Lymphocytes % (Manual) 4 L Abs Neuts (Manual) 22.1 H Abs Monocytes (Manual) 1.5 H PT 15.9 H VBG pH VBG pCO2 Sodium 134.7 L Potassium 3.4 L Carbon Dioxide 21 L POC Glucose Urine Protein Urine Ketones Urine Blood 04/26/19 04/26/19 04/26/19 20:12 20:45 20:50 WBC MCH RDW Seg Neuts % (Manual) Lymphocytes % (Manual) Abs Neuts (Manual) Abs Monocytes (Manual) PT VBG pH 7.47 H VBG pCO2 31.4 L Sodium Potassium Carbon Dioxide POC Glucose 115 H Urine Protein 30 H Urine Ketones 80 H Urine Blood SMALL H Discharge - Discharge Clinical Impression: Strep pharyngitis Leukocytosis Qualifiers: Leukocytosis type: unspecified Qualified Code(s): D72.829 - Elevated white blood cell count, unspecified Fever Qualifiers: Fever type: unspecified Qualified Code(s): R50.9 - Fever, unspecified Disposition: HOME, SELF-CARE Instructions: Acetaminophen, Fever ([facility]), Strep Throat ([facility]) Additional Instructions: It is important that you take the full course of antibiotics as prescribed. I would recommend that you avoid any sharp or difficult to chew foods over the next week or so. I would recommend that you stick to soup, broth, Jell-O or applesauce and other soft foods. Make sure that you drink plenty of fluids and stay well-hydrated. Take Tylenol 650 mg every 6 hours as needed for fever or ibuprofen 600-800 mg every 8 hours as needed for fever. It is important that you stay well-hydrated with plenty of water and Gatorade or Pedialyte. Prescriptions: Cephalexin Monohydrate [Keflex 500 mg Capsule] 500 mg PO TID 10 Days #30 capsule Referrals: LITO BARGER PA [Primary Care Provider] - Follow up as needed
--- NOTE | 2019-04-26 23:07 | EKG REPORT ---
SEVERITY:- OTHERWISE NORMAL ECG - SINUS TACHYCARDIA : Confirmed by: Omar Trujillo MD 26-Apr-2019 23:07:20
[2019-04-27 02:10] VITALS: BP 100/44
== END 2019-04-27 02:36 | disposition home or self-care (01) ==
LOC: ER 18:10
DX: J02.0 Streptococcal pharyngitis (principal); R50.9 Fever, unspecified; D72.829 Elevated white blood cell count, unspecified; E87.6 Hypokalemia; R00.0 Tachycardia, unspecified; R11.0 Nausea; R05 Cough; M54.9 Dorsalgia, unspecified; R10.12 Left upper quadrant pain; R10.13 Epigastric pain; R06.2 Wheezing; M79.10 Myalgia, unspecified site; F17.200 Nicotine dependence, unspecified, uncomplicated; Z87.01 Personal history of pneumonia (recurrent); Z88.0 Allergy status to penicillin
CPT/HCPCS: 93005; 94640; 99284; 96361; 96375; 96365; 36415; 87040; 87880; 82962; 85025; 85610; 80053; 81001; 82803; 83605; 87804; 71046; 93010; J3490 ×2; J1885; J2405; J7030; J0696; J1100; J7620

== ENCOUNTER 2019-08-01 13:22 | Emergency (ER) | payer MEDICAID ==
[2019-08-01] MEDS ORDERED: NORMAL SALINE 1000 ML 1,000 ML IV PRN (13:36)
[2019-08-01] MEDS ORDERED: ONDANSETRON HCL INJ/PF 4 MG/2 ML SDV IV ONE (13:38)
--- NOTE | 2019-08-01 13:38 | ER Document Report ---
ED Medical Screen (RME) - General Chief Complaint: Abdominal Pain Stated Complaint: ABDOMINAL PAIN Time Seen by Provider: 08/01/19 13:35 Primary Care Provider: LITO BARGER PA [Primary Care Provider] - Follow up as needed Mode of Arrival: Ambulatory Information source: Patient TRAVEL OUTSIDE OF THE [place] IN LAST 30 DAYS: No - HPI Onset: Other - This is a 34-year-old female presents to the emergency room today stating she had abdominal discomfort mid upper area for 2 days associated with some nausea and vomiting this morning. - Related Data Allergies/Adverse Reactions: Penicillins Allergy (Verified 08/01/19 13:26) Past Medical History - Social History Chew tobacco use (# tins/day): No Frequency of alcohol use: Social Drug Abuse: None Pulmonary Medical History: Reports: Hx Pneumonia Renal/ Medical History: Reports: Hx Ovarian Cysts. Denies: Hx Peritoneal Dialysis Past Surgical History: Reports: Hx Adenoidectomy, Hx Gynecologic Surgery - L ovary removal, Hx Oral Surgery - [place] teeth, Hx Tonsillectomy - addenoids - Immunizations Hx Diphtheria, Pertussis, Tetanus Vaccination: Yes Physical Exam - Abdominal Inspection: Normal Distension: No distension Bowel sounds: Normal Tenderness: Nontender Organomegaly: No organomegaly Doctor's Discharge - Discharge Referrals: LITO BARGER PA [Primary Care Provider] - Follow up as needed
[2019-08-01 14:08] LABS: APPEARANCE,URINE SLIGHTLY-CLOUDY; BILIRUBIN,URINE NEGATIVE (NEGATIVE); COLOR,URINE YELLOW; GLUCOSE, URINE NEGATIVE (NEGATIVE); KETONES,URINE NEGATIVE (NEGATIVE); LEUKOCYTE ESTERASE,URINE NEGATIVE (NEGATIVE); NITRITE,URINE NEGATIVE (NEGATIVE); PROTEIN,URINE NEGATIVE (NEGATIVE); URINE SPECIFIC GRAVITY 1.028
--- NOTE | 2019-08-01 14:15 | RADIOLOGY REPORT (SQ) ---
EXAM DESCRIPTION: ACUTE ABDOMEN SERIES COMPLETED DATE/TIME: 08/01/2019 2:02 pm REASON FOR STUDY: pain COMPARISON: None. NUMBER OF VIEWS: Three views. TECHNIQUE: Frontal chest, supine abdomen and upright/decubitus abdomen radiographic images acquired. LIMITATIONS: None. FINDINGS: CHEST: Lungs clear of infiltrates. FREE AIR: None. No abnormal gas collections. BOWEL GAS PATTERN: Gas is seen within multiple nondilated loops of colon noting multiple air-fluid le vels. CALCIFICATIONS: No suspicious calcifications. HARDWARE: None in the abdomen. SOFT TISSUES: No gross mass or suggestion of organomegaly. BONES: No acute fracture. No worrisome bone lesions. OTHER: No other significant finding. IMPRESSION: Air-fluid levels seen throughout the colon suggests diarrheal state/colitis. No evidenc e of bowel obstruction or pneumoperitoneum. TECHNICAL DOCUMENTATION: JOB ID: [id number] 2010 [employer]- All Rights Reserved Reading location - IP/workstation name: [email or web address]
--- NOTE | 2019-08-01 14:40 | ER Document Report ---
ED GI/ - General Chief Complaint: Abdominal Pain Stated Complaint: ABDOMINAL PAIN Time Seen by Provider: 08/01/19 13:35 Primary Care Provider: LITO BARGER PA [Primary Care Provider] - Follow up as needed Mode of Arrival: Ambulatory Notes: CHIEF COMPLAINT: Abdominal pain nausea vomiting HPI: 34-year-old female presenting to the emergency department complaining of generalized abdominal pain more focal in the upper abdomen over the last 2 days. No fever. Began having vomiting today. 1-2 episodes of loose bowels. ROS: See HPI - all other systems were reviewed and are otherwise negative Constitutional: no fever Eyes: no drainage, no blurred vision ENT: no runny nose, no sore throat Cardiovascular: no chest pain Resp: no SOB, no cough GI: Positive vomiting, positive diarrhea, positive abdominal pain : no dysuria Integumentary: no rash Allergy: no hives Musculoskeletal: no extremity pain or swelling Neurological: no numbness/tingling, no weakness MEDICATIONS: I agree with the patient medications as charted by the RN. ALLERGIES: I agree with the allergies as charted by the RN. PAST MEDICAL HISTORY/PAST SURGICAL HISTORY: Reviewed and agree as charted by RN. SOCIAL HISTORY: Reviewed and agree as charted by RN. FAMILY HISTORY: No significant familial comorbid conditions directly related to patient complaint EXAM: Reviewed vital signs as charted by RN. CONSTITUTIONAL: Alert and oriented and responds appropriately to questions. Well-appearing; well-nourished HEAD: Normocephalic; atraumatic EYES: PERRL; Conjunctivae clear, sclerae non-icteric ENT: normal nose; no rhinorrhea; moist mucous membranes; pharynx without lesions noted, no uvula edema or deviation, no tonsillar hypertrophy, phonation normal NECK: Supple without meningismus; non-tender; no cervical lymphadenopathy, no masses CARD: RRR; no murmurs, no clicks, no rubs, no gallops; symmetric distal pulses RESP: Normal chest excursion without splinting or tachypnea; breath sounds clear and equal bilaterally; no wheezes, no rhonchi, no rales, pulse oximetry 97% on room air not hypoxic ABD/GI: Normal bowel sounds; non-distended; soft, moderate tenderness with guarding in the epigastric region of the abdomen mild generalized abdominal tenderness in all other quadrants; no palpable organomegaly or masses. BACK: The back appears normal and is non-tender to palpation, there is no CVA tenderness EXT: Normal ROM in all joints; non-tender to palpation; no cyanosis, no effusions, no edema SKIN: Normal color for age and race; warm; dry; good turgor; no acute lesions noted NEURO: Moves all extremities equally; Motor and sensory function intact PSYCH: The patient's mood and manner are appropriate. Grooming and personal hygiene are appropriate. MDM: 34-year-old female with abdominal pain more focal in the upper abdomen. Has air-fluid levels on abdominal x-ray, will obtain CT to evaluate for colitis. Lab work is pending TRAVEL OUTSIDE OF THE [place] IN LAST 30 DAYS: No - Related Data Allergies/Adverse Reactions: Penicillins Allergy (Verified 08/01/19 13:26) Past Medical History - General Information source: Patient - Social History Smoking Status: Current Every Day Smoker Chew tobacco use (# tins/day): No Frequency of alcohol use: Social Drug Abuse: None Family History: CAD, DM, Hypertension, None, Reviewed & Not Pertinent, Other Patient has suicidal ideation: No Patient has homicidal ideation: No Pulmonary Medical History: Reports: Hx Pneumonia Renal/ Medical History: Reports: Hx Ovarian Cysts. Denies: Hx Peritoneal Dialysis Past Surgical History: Reports: Hx Adenoidectomy, Hx Gynecologic Surgery - L ovary removal, Hx Oral Surgery - [place] teeth, Hx Tonsillectomy - addenoids - Immunizations Hx Diphtheria, Pertussis, Tetanus Vaccination: Yes Physical Exam - Vital signs Vitals: Temp Pulse Resp BP Pulse Ox 98.4 F 84 16 127/78 H 97 08/01/19 13:22 08/01/19 13:22 08/01/19 13:22 08/01/19 13:08/01/19 13:22 Course - Re-evaluation Re-evalutation: 08/01/19 17:15 CT imaging does not show any acute findings. This is likely an enteritis, viral in nature. Will place patient on Bentyl, Zofran, anti-inflammatories, follow-up PCP - Vital Signs Vital signs: Temp Pulse Resp BP Pulse Ox 98.4 F 84 16 127/78 H 97 08/01/19 13:08/01/19 13:08/01/19 13:08/01/19 13:22 08/01/19 13:22 - Laboratory Result Diagrams: 08/01/19 14:20 08/01/19 14:20 Laboratory results interpreted by me: 08/01/19 08/01/19 08/01/19 13:45 14:20 14:20 MCH 26.4 L RDW 17.4 H Sodium 136.8 L Chloride 109 H Carbon Dioxide 21 L Creatinine 0.48 L Urine Urobilinogen 2.0 H Discharge - Discharge Clinical Impression: Abdominal pain, acute, epigastric, Enteritis Vomiting Qualifiers: Vomiting type: unspecified Vomiting Intractability: non-intractable Nausea pr esence: with nausea Qualified Code(s): R11.2 - Nausea with vomiting, unspecified Condition: Stable Disposition: HOME, SELF-CARE Additional Instructions: Your lab work and CT imaging did not show acute emergent abnormalities. This is likely a viral enteritis. Take the Bentyl and Voltaren to help with the abdominal pain. Take Zofran for nausea vomiting. Follow-up with your primary care provider in 1 to 2 days for recheck and reevaluation call for appointment Prescriptions: Dicyclomine HCl [Bentyl 20 mg Tablet] 20 mg PO Q6H PRN #20 tablet PRN Reason: Diclofenac Sodium [Voltaren 50 Mg Tablet.] 50 mg PO BID #20 tablet. Ondansetron [Zofran Odt 4 mg Tablet] 1 - 2 tab PO Q4H PRN #15 tab.rapdis PRN Reason: For Nausea/Vomiting Referrals: LITO BARGER PA [Primary Care Provider] - Follow up as needed
[2019-08-01 14:51] LABS: ABSOLUTE LYMPHOCYTES (AUTO) 2.5 10^3/uL (0.5-4.7); ABSOLUTE MONOCYTES (AUTO) 0.8 10^3/uL (0.1-1.4); ABSOLUTE NEUT (AUTO) 4.6 10^3/uL (1.7-8.2); BASOPHILS % (AUTO) 0.1 % (0-2); EOSINOPHILS % (AUTO) 0.5 % (0-6); HEMATOCRIT 40.2 % (36.0-47.0); HEMOGLOBIN 13.1 g/dL (12.0-15.5); LYMPHOCYTES % (AUTO) 31.2 % (13-45); MEAN CORPUSCULAR HEMOGLOBIN 26.4 pg (27.0-33.4); MEAN CORPUSCULAR HGB CONC 32.7 g/dL (32.0-36.0); MEAN CORPUSCULAR VOLUME 81 fl (80-97); PLATELET COUNT 238 10^3/uL (150-450); RED BLOOD COUNT 4.97 10^6/uL (3.72-5.28); RED CELL DISTRIBUTION WIDTH 17.4 % (11.5-14.0); SEGMENTED NEUTROPHILS % (AUTO) 58.2 % (42-78); TOTAL CELLS COUNTED % (AUTO) 100 %; WHITE BLOOD COUNT 7.9 10^3/uL (4.0-10.5)
[2019-08-01 14:54] LABS: ALBUMIN 4.1 g/dL (3.5-5.0); ALKALINE PHOSPHATASE 64 U/L (38-126); ANION GAP 7 (5-19); ASPARTATE AMINO TRANSFERASE 27 U/L (14-36); BILIRUBIN,TOTAL 0.4 mg/dL (0.2-1.3); BLOOD UREA NITROGEN 10 mg/dL (7-20); CALCIUM 8.8 mg/dL (8.4-10.2); CARBON DIOXIDE 21 mmol/L (22-30); CHLORIDE 109 mmol/L (98-107); GLUCOSE 84 mg/dL (75-110); POTASSIUM 4.1 mmol/L (3.6-5.0); TOTAL PROTEIN 7.8 g/dL (6.3-8.2)
[2019-08-01] MEDS ORDERED: DICYCLOMINE HCL INJ 20 MG/2 ML AMPULE IM ONE (16:29)
[2019-08-01] MEDS ORDERED: KETOROLAC TROMETHAMINE INJ/PF 30 MG/1 ML SDV IV ONE (16:29)
--- NOTE | 2019-08-01 16:39 | RADIOLOGY REPORT (SQ) ---
EXAM DESCRIPTION: CT ABD/PELVIS WITH IV ONLY COMPLETED DATE/TIME: 08/01/2019 4:26 pm REASON FOR STUDY: eval for colitis COMPARISON: None. TECHNIQUE: CT scan of the abdomen and pelvis performed using helical scanning technique with dynamic intravenous contrast injection. No oral contrast. Images reviewed with lung, soft tissue, and bone w indows. Reconstructed coronal and sagittal MPR images reviewed. Delayed images for evaluation of the urinary system also acquired. All images stored on PACS. All CT scanners at this facility use dose modulation, iterative reconstruction, and/or weight based d osing when appropriate to reduce radiation dose to as low as reasonably achievable (ALARA). [facility]: Dose Right [facility]: CareDose [facility]: Dose Right [facility]: Teradose 4D [facility]: Flixel Photos CONTRAST TYPE AND DOSE: contrast/concentration: Isovue 350.00 mg/ml; Total Contrast Delivered: 100.0 ml; Total Saline Delivered: 72.0 ml RENAL FUNCTION: GFR > 60. RADIATION DOSE: CT Rad equipment meets quality standard of care and radiation dose reduction techniq ues were employed. CTDIvol: 15.8 - 19.2 mGy. DLP: 1898 mGy-cm.. LIMITATIONS: None. FINDINGS: LOWER CHEST: No significant findings. LIVER: Normal size. No enhancing masses. No dilated ducts. SPLEEN: Normal size. No focal lesions. PANCREAS: No masses identified. No significant calcifications. No adjacent inflammation or peripancre atic fluid collections. Pancreatic duct not dilated. GALLBLADDER: No calcified stones. No inflammatory changes to suggest cholecystitis. ADRENAL GLANDS: No significant masses. RIGHT KIDNEY AND URETER: No cysts identified. No solid masses identified. No calcified stones. No hyd ronephrosis or hydroureter. LEFT KIDNEY AND URETER: No cysts identified. No solid masses identified. No calcified stones. No hydr onephrosis or hydroureter. AORTA AND VESSELS: No aneurysm. No dissection. Renal arteries, SMA, celiac without significant stenos is. RETROPERITONEUM: No bulky retroperitoneal adenopathy. BOWEL AND PERITONEAL CAVITY: No obstruction or inflammatory changes. No free fluid. APPENDIX: Normal. PELVIS: No mass. No free fluid. Unremarkable bladder. ABDOMINAL WALL: No masses. No hernias. BONES: No acute findings. OTHER: No other significant finding. IMPRESSION: NO ACUTE FINDINGS IN THE ABDOMEN OR PELVIS ON CT SCAN WITH IV CONTRAST. TECHNICAL DOCUMENTATION: JOB ID: [id number] Quality ID # [id number]: Final reports with documentation of one or more dose reduction techniques (e.g., Au tomated exposure control, adjustment of the mA and/or kV according to patient size, use of iterative reconstruction technique) 2010 [employer]- All Rights Reserved Reading location - IP/workstation name: [email or web address]
[2019-08-01 18:43] VITALS: BP 126/73
== END 2019-08-01 18:41 | disposition home or self-care (01) ==
LOC: ER 13:22
DX: K52.9 Noninfective gastroenteritis and colitis, unspecified (principal); R11.2 Nausea with vomiting, unspecified; R10.13 Epigastric pain; F17.200 Nicotine dependence, unspecified, uncomplicated
CPT/HCPCS: 99284; 96372; 96361; 96374; 96375; 36415; 84702; 83690; 85025; 80053; 81001; 74022; 74177; J0500; J1885; J2405; J7030

== ENCOUNTER 2019-12-23 06:14 | Emergency (ER) | payer MEDICAID ==
[2019-12-23 07:10] LABS: APPEARANCE,URINE CLEAR; BILIRUBIN,URINE NEGATIVE (NEGATIVE); COLOR,URINE YELLOW; GLUCOSE, URINE NEGATIVE (NEGATIVE); KETONES,URINE NEGATIVE (NEGATIVE); LEUKOCYTE ESTERASE,URINE NEGATIVE (NEGATIVE); NITRITE,URINE NEGATIVE (NEGATIVE); PROTEIN,URINE NEGATIVE (NEGATIVE); URINE SPECIFIC GRAVITY 1.021; UROBILINOGEN,URINE NEGATIVE mg/dL (<2.0)
[2019-12-23 07:18] LABS: ABSOLUTE EOSINOPHILS # (AUTO) 0.1 10^3/uL (0.0-0.6); ABSOLUTE LYMPHOCYTES (AUTO) 2.9 10^3/uL (0.5-4.7); ABSOLUTE MONOCYTES (AUTO) 0.8 10^3/uL (0.1-1.4); ABSOLUTE NEUT (AUTO) 3.7 10^3/uL (1.7-8.2); BASOPHILS % (AUTO) 0.5 % (0-2); EOSINOPHILS % (AUTO) 1.6 % (0-6); HEMOGLOBIN 12.7 g/dL (12.0-15.5); LYMPHOCYTES % (AUTO) 38.8 % (13-45); MEAN CORPUSCULAR HGB CONC 32.5 g/dL (32.0-36.0); MEAN CORPUSCULAR VOLUME 83 fl (80-97); MONOCYTES % (AUTO) 10.5 % (3-13); PLATELET COUNT 234 10^3/uL (150-450); RED CELL DISTRIBUTION WIDTH 15.8 % (11.5-14.0); SEGMENTED NEUTROPHILS % (AUTO) 48.6 % (42-78); TOTAL CELLS COUNTED % (AUTO) 100 %; WHITE BLOOD COUNT 7.6 10^3/uL (4.0-10.5)
--- NOTE | 2019-12-23 07:18 | EKG REPORT ---
SEVERITY:- NORMAL ECG - SINUS RHYTHM : Confirmed by: Omar Trujillo MD 23-Dec-2019 07:17:57
[2019-12-23 07:30] LABS: ALBUMIN 3.9 g/dL (3.5-5.0); ALKALINE PHOSPHATASE 52 U/L (38-126); ASPARTATE AMINO TRANSFERASE 27 U/L (14-36); BILIRUBIN,TOTAL 0.3 mg/dL (0.2-1.3); BLOOD UREA NITROGEN 17 mg/dL (7-20); CALCIUM 9.2 mg/dL (8.4-10.2); GLUCOSE 91 mg/dL (75-110); POTASSIUM 4.6 mmol/L (3.6-5.0); TOTAL PROTEIN 7.2 g/dL (6.3-8.2)
[2019-12-23 07:36] LABS: CARBON DIOXIDE 25 mmol/L (22-30); CHLORIDE 110 mmol/L (98-107)
[2019-12-23 07:38] LABS: ANION GAP 3 (5-19)
--- NOTE | 2019-12-23 08:03 | ER Document Report ---
ED GI/ - General Chief Complaint: Abdominal Pain Stated Complaint: CHEST PAIN Time Seen by Provider: 12/23/19 07:59 Primary Care Provider: LITO BARGER PA [Primary Care Provider] - Follow up as needed TRAVEL OUTSIDE OF THE [place] IN LAST 30 DAYS: No - HPI Notes: 12/23/19 08:14 34-year-old female presents with abdominal pain. Patient has been experiencing left upper abdominal pain for the past 3 to 4 months. She notices an association with eating. She states that last night after dinner she laid down and started to have the left upper quadrant abdominal pain. It feels like a cramping sensation and gas pain. States that there is some soreness afterwards. The pain is relieved by burping. Pain does not radiate. She does not know exactly what foods cause this pain. It does not occur on the right side. No nausea or vomiting. She has not tried any nptq-tkc-ybcrzgm medicines. Denies medical problems. - Related Data Allergies/Adverse Reactions: Penicillins Allergy (Verified 12/23/19 06:28) Past Medical History - Social History Smoking Status: Current Every Day Smoker Frequency of alcohol use: Occasional Drug Abuse: Marijuana Family History: CAD, DM, Hypertension, None, Reviewed & Not Pertinent, Other Patient has homicidal ideation: No - Medical History Notes: Denies medical problems Pulmonary Medical History: Reports: Hx Pneumonia Renal/ Medical History: Reports: Hx Ovarian Cysts. Denies: Hx Peritoneal Dialysis Past Surgical History: Reports: Hx Adenoidectomy, Hx Gynecologic Surgery - L ovary removal, Hx Oral Surgery - [place] teeth, Hx Tonsillectomy - addenoids - Immunizations Hx Diphtheria, Pertussis, Tetanus Vaccination: Yes Review of Systems - Review of Systems Constitutional: denies: Fever EENT: No symptoms reported Cardiovascular: denies: Chest pain Respiratory: denies: Short of breath Gastrointestinal: Abdominal pain. denies: Nausea, Vomiting Genitourinary: denies: Dysuria Musculoskeletal: No symptoms reported Skin: No symptoms reported Neurological/Psychological: No symptoms reported Physical Exam - Vital signs Vitals: Temp Pulse Resp BP Pulse Ox 97.9 F 55 L 14 122/65 97 12/23/19 06:24 12/23/19 06:24 12/23/19 06:24 12/23/19 06:24 12/23/19 06:24 Interpretation: No: Tachycardic - HEENT Head: Normocephalic Eyes: No: Scleral icterus Pupils: PERRL - Respiratory Breath sounds: Normal Chest palpation: Normal - Cardiovascular Rhythm: Regular Heart sounds: Normal auscultation Murmur: No - Abdominal Inspection: Obese Distension: No distension Bowel sounds: Normal Tenderness: Nontender - Extremities General upper extremity: Normal inspection - Neurological Neuro grossly intact: Yes Cognition: Normal Orientation: AAOx4 - Psychological Associated symptoms: Normal affect Course - Re-evaluation Re-evalutation: 12/23/19 08:20 34-year-old female here with left upper quadrant abdominal pain, intermittent for the past 3 to 4 months, associated with food and better with belching. She is well-appearing, obese, no abdominal tenderness. Suspect her symptoms are likely due to acid reflux versus possible gastritis, her symptoms do not suggest pancreatitis or biliary disease. Would not have a suspicion for cardiac etiology at this time. Will check labs, EKG. Provide Pepcid and simethicone for symptomatic control. 12/23/19 09:14 Patient updated on lab results. Discussed continuing treatment at home. Encourage PCP follow-up. Stable at time of discharge. - Vital Signs Vital signs: Temp Pulse Resp BP Pulse Ox 97.9 F 55 L 14 122/65 97 12/23/19 06:24 12/23/19 06:24 12/23/19 06:24 12/23/19 06:24 12/23/19 06:24 - Laboratory Result Diagrams: 12/23/19 06:43 12/23/19 06:43 Laboratory results interpreted by me: 12/23/19 12/23/19 06:43 06:43 RDW 15.8 H Chloride 110 H Anion Gap 3 L 12/23/19 09:14 Labs reviewed. No leukocytosis or left shift. No anemia. Electrolytes okay. Creatinine within normal limits. No elevations of T bili/AST/ALT is to suggest biliary pathology. Lipase within normal limits. No UTI. Trop negative - EKG Interpretation by Me Additional EKG results interpreted by me: 12/23/19 08:25 EKG is interpreted by me. Normal sinus rhythm with rate of 63, QRS and QTc within normal limits. No ST elevations. Discharge - Discharge Clinical Impression: LUQ abdominal pain, Dyspepsia Condition: Stable Disposition: HOME, SELF-CARE Additional Instructions: Please try to keep a journal or record of foods that cause the pain, try to avoid these foods if a trigger is found. Can trial olxp-rzb-khrdegy acid reducing medication such as Pepcid/famotidine and can also try a gas relieving medication such as simethicone/Mylicon. Please follow-up with your PCP. Return to the ED for any worsening or concerning symptoms. Forms: Return to Work Referrals: LITO BARGER PA [Primary Care Provider] - Follow up as needed
[2019-12-23] MEDS ORDERED: FAMOTIDINE 20 MG TABLET PO ONE (08:12)
[2019-12-23] MEDS ORDERED: SIMETHICONE 80 MG TAB.CHEW PO ONE (08:12)
[2019-12-23 09:20] VITALS: BP 130/77
== END 2019-12-23 09:21 | disposition home or self-care (01) ==
LOC: ER 06:14
DX: R10.12 Left upper quadrant pain (principal); R10.13 Epigastric pain; R07.9 Chest pain, unspecified; R10.10 Upper abdominal pain, unspecified; E66.9 Obesity, unspecified; F17.200 Nicotine dependence, unspecified, uncomplicated; Z88.0 Allergy status to penicillin
CPT/HCPCS: 93005; 99284; 36415; 83690; 85025; 80053; 81001; 84484; 93010; J3490

== ENCOUNTER 2020-03-10 08:33 | Emergency (ER) | payer MEDICAID ==
[2020-03-10] MEDS ORDERED: ACETAMINOPHEN 325 MG TABLET PO ONE (10:00)
--- NOTE | 2020-03-10 11:03 | ER Document Report ---
ED Headache - General Chief Complaint: Headache Stated Complaint: HEADACHE Time Seen by Provider: 03/10/20 10:09 Primary Care Provider: LITO BARGER PA [Primary Care Provider] - Follow up as needed Mode of Arrival: Ambulatory Information source: Patient Notes: 34-year-old woman presenting to the emergency department with a complaint of headache for the past 2 days. Complains of congestion body aches and pains and fatigue. She is not taking medications for the headache she has no prior history of headaches. She does complain of photophobia and tenderness behind the eyes sinus congestion. TRAVEL OUTSIDE OF THE [place] IN LAST 30 DAYS: No - Related Data Allergies/Adverse Reactions: Penicillins Allergy (Verified 12/23/19 06:28) Past Medical History - Social History Smoking Status: Current Every Day Smoker Frequency of alcohol use: Occasional Drug Abuse: Marijuana Family History: CAD, DM, Hypertension, None, Reviewed & Not Pertinent, Other Pulmonary Medical History: Reports: Hx Pneumonia Renal/ Medical History: Reports: Hx Ovarian Cysts. Denies: Hx Peritoneal Dialysis Past Surgical History: Reports: Hx Adenoidectomy, Hx Gynecologic Surgery - L ovary removal, Hx Oral Surgery - [place] teeth, Hx Tonsillectomy - addenoids - Immunizations Hx Diphtheria, Pertussis, Tetanus Vaccination: Yes Review of Systems - Review of Systems Notes: Constitutional: Negative for fever. HENT: + Nasal congestion Eyes: Negative for visual changes. Cardiovascular: Negative for chest pain. Respiratory: Negative for shortness of breath. Gastrointestinal: Negative for abdominal pain, vomiting or diarrhea. Genitourinary: Negative for dysuria. Musculoskeletal: Negative for back pain. Skin: Negative for rash. Neurological: See HPI 10 point ROS negative except as marked above and in HPI. Physical Exam - Vital signs Vitals: Temp Pulse Resp BP Pulse Ox 98.1 F 73 24 H 121/73 99 03/10/20 08:39 03/10/20 08:39 03/10/20 08:39 03/10/20 08:39 03/10/20 08:39 - Notes Notes: PHYSICAL EXAMINATION: Physical Exam: General: Well-nourished well-developed 34-year-old female in no acute distress HEENT: NC/AT, pupils equal round and reactive to light, MM moist,nares clear, oropharynx clear, airway patent Neck: supple, no adenopathy, no masses. Good range of motion Lungs: clear, no wheezing, no rales no rhonchi CVS: Regular rate and rhythm no murmur gallop or rub Abdomen: Soft, active, nontender, no masses, no hepatosplenomegaly Ext: No edema, clubbing or cyanosis. Neuro: Alert and responsive, moving all 4 extremities on command, cranial nerves intact, no focal findings Skin: Intact no open lesions, no rash PSYCH: Normal mood, normal affect. Course - Vital Signs Vital signs: Temp Pulse Resp BP Pulse Ox 98.1 F 73 24 H 121/73 99 03/10/20 08:39 03/10/20 08:39 03/10/20 08:39 03/10/20 08:39 03/10/20 08:39 - Laboratory Result Diagrams: 03/10/20 11:26 03/10/20 11:26 Laboratory results interpreted by me: 03/10/20 11:26 RDW 15.1 H I have reviewed laboratory data and used this information for the treatment decisions regarding the patient. Discharge - Discharge Clinical Impression: Suspected 2019 novel coronavirus infection Headache Qualifiers: Headache type: unspecified Headache chronicity pattern: episodic headache Intractability: not intractable Qualified Code(s): R51.9 - Headache, unspecified Condition: Good Disposition: HOME, SELF-CARE Instructions: COVID-19 Guidance for Persons Under Investigation, Headache ([facility]) Additional Instructions: You were seen in the emergency department with a diagnosis of symptoms which are suggestive of possible coronavirus infection. Please use daily medication for headache as prescribed Naprosyn 500 mg twice daily Please self quarantine until you get the results of your testing. If your symptoms are worsening or if you have other concerns you may return to the emergency department for further evaluation and treatment. HOME CARE INSTRUCTIONS & INFORMATION: Thank you for choosing us for your medical needs. We hope you're satisfied with the care you received. After you leave, you must properly care for your problem and, at the same time, observe its progress. Any condition can change. Some illnesses can change rapidly over hours or days. If your condition worsens, return to the Emergency Department or see your physician promptly. ABOUT YOUR X-RAYS AND EKG'S: If you had an EKG or X-rays taken, they have been read by the Emergency Physician. The X-rays and EKG's will also be read by a Radiologist or Proof Technician within 24 hours. If discrepancies are noted, you will be notified by telephone. Please be certain the ED has a correct telephone number & address where you can be reached. Also, realize that some fractures or abnormalities do not show up on initial X-rays. If your symptoms continue, see your physician. ABOUT YOUR LABORATORY TEST: If you had laboratory tests, the results have been reviewed by the Emergency Physician. Some test results (for example cultures) may not be available for several days. You will be contacted if any test result shows you need additional treatment. Please be certain the ED has a correct telephone number and address where you can be reached. ABOUT YOUR MEDICATIONS: You will receive instructions on how to take your medicine on the prescription label you receive. Additional information may be provided by the Pharmacy. If you have questions afterwards, call the ED for clarification or further instructions. Some prescribed medications may cause drowsiness. Do not perform tasks such as driving a car or operating machinery without consulting your Pharmacist. If you feel you need a refill of pain medication, your condition will need re-evaluation. Please do not call for a refill of any medication. ABOUT YOUR SIGNATURE: Signature of this document acknowledges to followin. Understanding that you received emergency treatment and that you may be released before al medical problems are known or treated. Please be certain the ED has a correct phone number & address where you can be reached. 2. Acknowledgement that you will arrange for follow-up care as recommended. 3. Authorization for the Emergency Physician to provide information to your follow-up Physician in order to maximize your care. AT ANY TIME, IF YOUR SYMPTOMS CHANGE SIGNIFICANTLY OR WORSEN OR YOU DEVELOP NEW SYMPTOMS, RETURN TO THE EMERGENCY DEPARTMENT IMMEDIATELY FOR RE-EVALUATION. OUR GOAL IS TO PROVIDE EXCELLENT MEDICAL CARE! WE HOPE THAT WE HAVE MET YOUR EXPECTATIONS DURING YOUR EMERGENCY DEPARTMENT VISIT AND THAT YOU FEEL YOU HAVE RECEIVED EXCELLENT CARE! Prescriptions: Naproxen [Naprosyn] 500 mg PO BID #20 tablet Referrals: LITO BARGER PA [Primary Care Provider] - Follow up as needed
[2020-03-10 12:11] LABS: ABSOLUTE EOSINOPHILS # (AUTO) 0.3 10^3/uL (0.0-0.6); ABSOLUTE LYMPHOCYTES (AUTO) 2.4 10^3/uL (0.5-4.7); ABSOLUTE MONOCYTES (AUTO) 0.9 10^3/uL (0.1-1.4); ABSOLUTE NEUT (AUTO) 4.9 10^3/uL (1.7-8.2); BASOPHILS % (AUTO) 0.4 % (0-2); EOSINOPHILS % (AUTO) 3.3 % (0-6); HEMATOCRIT 38.8 % (36.0-47.0); HEMOGLOBIN 12.9 g/dL (12.0-15.5); LYMPHOCYTES % (AUTO) 28.2 % (13-45); MEAN CORPUSCULAR HEMOGLOBIN 27.7 pg (27.0-33.4); MEAN CORPUSCULAR HGB CONC 33.3 g/dL (32.0-36.0); MEAN CORPUSCULAR VOLUME 83 fl (80-97); MONOCYTES % (AUTO) 10.3 % (3-13); PLATELET COUNT 238 10^3/uL (150-450); RED BLOOD COUNT 4.67 10^6/uL (3.72-5.28); RED CELL DISTRIBUTION WIDTH 15.1 % (11.5-14.0); SEGMENTED NEUTROPHILS % (AUTO) 57.8 % (42-78); TOTAL CELLS COUNTED % (AUTO) 100 %; WHITE BLOOD COUNT 8.4 10^3/uL (4.0-10.5)
[2020-03-10 12:33] LABS: ALBUMIN 3.9 g/dL (3.5-5.0); ALKALINE PHOSPHATASE 51 U/L (38-126); ANION GAP 7 (5-19); ASPARTATE AMINO TRANSFERASE 24 U/L (14-36); BILIRUBIN,DIRECT 0.2 mg/dL (0.0-0.4); BILIRUBIN,TOTAL 0.5 mg/dL (0.2-1.3); BLOOD UREA NITROGEN 10 mg/dL (7-20); CALCIUM 9.1 mg/dL (8.4-10.2); CARBON DIOXIDE 26 mmol/L (22-30); CHLORIDE 106 mmol/L (98-107); GLUCOSE 88 mg/dL (75-110); POTASSIUM 4.3 mmol/L (3.6-5.0); TOTAL PROTEIN 7.1 g/dL (6.3-8.2)
[2020-03-10 12:55] VITALS: BP 122/67
[2020-03-10 12:56] LABS: APPEARANCE,URINE CLEAR; BILIRUBIN,URINE NEGATIVE (NEGATIVE); GLUCOSE, URINE NEGATIVE (NEGATIVE); KETONES,URINE NEGATIVE (NEGATIVE); PROTEIN,URINE 100 mg/dL (NEGATIVE); URINE SPECIFIC GRAVITY 1.023; UROBILINOGEN,URINE NEGATIVE mg/dL (<2.0)
[2020-03-10 12:59] LABS: COLOR,URINE PINK
== END 2020-03-10 13:12 | disposition home or self-care (01) ==
LOC: ER 08:33
DX: R51.9 Headache, unspecified (principal); Z20.828 Contact with and (suspected) exposure to other viral communicable diseases; M79.10 Myalgia, unspecified site; R68.89 Other general symptoms and signs; H53.149 Visual discomfort, unspecified; F17.200 Nicotine dependence, unspecified, uncomplicated; Z88.0 Allergy status to penicillin
CPT/HCPCS: 99283; 36415; 85025; 87635; 80053; 81001; J3490; C9803